=== PATIENT | male | born 1955 | race Caucasian/White ===

== ENCOUNTER 2024-02-16 09:32 | Inpatient (IN) ==
--- NOTE | 2024-02-16 09:41 | Emergency Department Note ---
Impression & Plan ST elevation (STEMI) myocardial infarction ADMIT ED Provider Note HPI: History obtained from patient and via EMS report. The patient is a 68-year-old gentleman who presents to the emergency department as a heart alert. Patient was walking shortly prior to arrival to the ED when he became acutely short of breath and had some chest discomfort. EMS was contacted and EKG performed in the field showed evidence of ST elevation in leads V2 and V3 concerning for STEMI. EMS called and for med command and a heart alert was activated prior to the patient's arrival. On arrival here to the ED the patient is hemodynamically stable, he is alert, we were able to discuss a plan of care with the patient via the diplomatic interpreter video screen and he expressed an understanding of his condition and was in agreement for transfer to the cardiac catheterization lab. This conversation was held with interventional cardiology present. ROS: - Per HPI Differential Diagnosis: ST elevation myocardial infarction, pericarditis, costochondritis, aortic dissection, esophageal spasm, amongst other potential pathologies. *Outpatient medications and allergy history reviewed. 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 Interventional cardiology was at the bedside at the time the patient arrived. Lab work was sent and the patient was transported to the cardiac catheterization lab in stable condition for further management/definitive care. Chest x-ray was deferred to the cardiac catheterization lab per interventional cardiology preference. Patient was noted to be given aspirin in the field via EMS prior to arrival. Patient was explained all the above findings via the video diplomatic interpreter service, he was in agreement for transfer to the cardiac catheterization lab. I did attempt to contact the patient's family to update them at the number he provided and there was no answer. Signout was given to the admitting [facility] Hospitalist service. Patient was admitted to the service of Dr. Hills. Consultants/Discussions held with other healthcare providers: -Interventional cardiology, Dr. Kaminski -Hospitalist, Dr. Hills Disposition discussion held by myself with: -Patient * CRITICAL CARE TIME: ( 35 ) minutes - Diagnosis: 1. ST elevation [place], acute Disposition: Admission Johnathon Llamas DO Emergency Medicine Past Med/Surg History Problem List (Updated 02/16/24 @ 11:37 by Johnathon Llamas DO) ST elevation (STEMI) myocardial infarction (Acute) Social History Smoking Status: Unknown if ever smoked Hx Alcohol Use: No Hx Substance Use: No Preferred Language: Chadian Communication Ability: Effective Communication Tools: IPad Water Treatment Technician Required: Yes Beliefs That Will Affect Care: None Current Living Situation: Spouse Other Information That Helps Us Care for You: No Feels Safe at Home: Yes Safety Concerns: Feels Safe At This Time Assistive Devices: None Allergies Allergies Allergy/AdvReac Type Severity Reaction Status Date / Time No Known Allergies Allergy Unverified 01/10/11 16:14 Home Meds Home Medications Medication Instructions Recorded Confirmed None (Patient States No Home Meds) ##0 01/10/11 Results & Data (ED) Vital Signs Vital Signs - 24 hr 02/16/24 09:35 02/16/24 09:35 02/16/24 09:41 Pulse Rate 88 Pulse Rate [Apical] 92 H Respiratory Rate 17 18 Respiratory Depth Normal Blood Pressure 142/98 H Blood Pressure [Left Arm] 148/99 H Blood Pressure Mean 112 Blood Pressure Mean [Left Arm] 115 Blood Pressure Position [Left Arm] Semi-fowlers Pulse Oximetry 92 Oxygen Delivery Method Nasal Cannula Nasal Cannula Oxygen Flow Rate 4 4 Sepsis Recent Fever Within 48 Hours No Sepsis New/Unexplained Change in Mental Status N/A Sepsis Action Taken by Nursing No Action Required Laboratory Data 02/16/24 09:41 02/16/24 09:41 Lab Results 02/16/24 Range/Units 09:41 WBC 8.98 (4.8-10.8) K/ul RBC 4.55 L (4.70-6.10) M/uL Hgb 14.9 (14.0-18.0) g/dl Hct 44.1 (42.0-52.0) % MCV 96.9 (80.0-100.0) fL MCH 32.7 (25.0-34.0) pg MCHC 33.8 (32.0-36.0) g/dL RDW Std Deviation 50.5 H (36.4-46.3) fL RDW Coeff of Kristel 14.2 (11.5-14.5) % Plt Count 272 (130-400) K/uL MPV 9.3 L (9.4-12.4) fL Immature Gran % (Auto) 0.2 % Neut % (Auto) 48.6 % Lymph % (Auto) 32.0 % Dauphin % (Auto) 13.4 % Eos % (Auto) 4.9 % Baso % (Auto) 0.9 % Neut # (Auto) 4.37 (1.40-6.50) K/uL Lymph # (Auto) 2.87 (1.20-3.40) K/uL [place]hin # (Auto) 1.20 H (0.11-0.59) K/uL Eos # (Auto) 0.44 (0.00-0.50) K/uL Baso # (Auto) 0.08 (0.00-0.20) K/uL Immature Gran # (Auto) 0.02 (0.01-0.20) K/uL Sodium 140 (136-145) mmol/L Potassium 3.9 (3.5-5.1) mmol/L Chloride 108 H (98-107) mmol/L Carbon Dioxide 25 (21-32) mmol/L Anion Gap 7 (3-11) BUN 13 (6-23) mg/dl Creatinine 1.03 (0.6-1.4) mg/dl Est Cr Clr Drug Dosing Not Reportable eGFR 80.11 BUN/Creatinine Ratio 12.6 (10-20) Glucose 138 H (70-99(Fasting)) mg/dl Calcium 8.7 (8.6-10.3) mg/dl Total Bilirubin 0.9 (0.2-1.0) mg/dl AST 20 (13-39) U/L ALT 14 (7-52) U/L Alkaline Phosphatase 63 (34-104) U/L Troponin I High Sens 57.2 H* (0-20) pg/ml Total Protein 7.1 (6.0-8.3) gm/dl Albumin 4.1 (3.4-5.0) gm/dl Globulin 3.0 (2.5-4.0) gm/dl Albumin/Globulin Ratio 1.4 (0.9-2) Lipase 15 (11-82) U/L Administered Medications Discontinued Medications Aspirin (Aspirin Chew 324 Mg) 324 mg PO NOW STA Stop: 02/16/24 09:37 Last Admin: 02/16/24 09:56 Dose: 324 mg Documented By: CMB Aspirin (Aspirin Chew 324 Mg) Confirm Administered Dose 324 mg .ROUTE .STK-MED ONE Stop: 02/16/24 09:39 Last Admin: 02/16/24 09:56 Dose: Not Given Documented By: CMB Fentanyl Citrate (Fentanyl Citrate Pf 100 Mcg/2 Ml Vial) Confirm Administered Dose 100 mcg .ROUTE .STK-MED ONE Stop: 02/16/24 09:38 Last Admin: 02/16/24 10:21 Dose: 25 mcg Documented By: KATIE Heparin Sodium (Porcine) (Heparin (Porcine) 1000 Unit/Ml 10 Ml (Fingernail Sculptor Use Only)) Confirm Administered Dose 10,000 units .ROUTE .STK-MED ONE Stop: 02/16/24 09:38 Last Admin: 02/16/24 10:21 Dose: Not Given Documented By: CMMarlon Heparin Sodium (Porcine) (Heparin Sod (Porcine) 1000 Unit/Ml) Confirm Administered Dose 1,000 units .ROUTE .STK-MED ONE Stop: 02/16/24 09:39 Last Admin: 02/16/24 09:56 Dose: 5,000 units Documented By: CMMarlon Co-signed By: [facility] Heparin Sodium (Porcine) (Heparin (Porcine) 1000 Unit/Ml 10 Ml (Fingernail Sculptor Use Only)) Confirm Administered Dose 10,000 units .ROUTE .STK-MED ONE Stop: 02/16/24 10:29 Last Admin: 02/16/24 10:32 Dose: 1,000 units Documented By: KATIE Heparin Sodium/Sodium Chloride (Heparin In Nss Infusion 1000 Unit/500 Ml (2 U/Ml) Bag) Confirm Administered Dose 3,000 units IV .STK-MED ONE Stop: 02/16/24 09:38 Last Admin: 02/16/24 09:57 Dose: 3,000 units Documented By: GENIA Iodixanol (Iodixanol (Visipaque) 320 Mg/Ml 100ml) Confirm Administered Dose 1 ml IV .STK-MED ONE Stop: 02/16/24 09:38 Last Admin: 02/16/24 09:56 Dose: Not Given Documented By: KATIE Ioversol (Optiray 350) Confirm Administered Dose 1 ml .ROUTE .STK-MED ONE Stop: 02/16/24 09:38 Last Admin: 02/16/24 10:24 Dose: 145 ml Documented By: GENIA Midazolam HCl (Midazolam Hcl 1 Mg/Ml 2ml Vial) Confirm Administered Dose 2 mg .ROUTE .STK-MED ONE Stop: 02/16/24 09:37 Last Admin: 02/16/24 10:20 Dose: 1 mg Documented By: KATIE Nitroglycerin/Dextrose (Nitroglycerin/D5w 100mcg/Ml 20ml Syr) Confirm Administered Dose 2,000 mcg .ROUTE .STK-MED ONE Stop: 02/16/24 09:38 Last Admin: 02/16/24 09:57 Dose: 2,000 mcg Documented By: GENIA Ticagrelor (Ticagrelor 90 Mg Tab) Confirm Administered Dose 180 mg .ROUTE .STK- MED ONE Stop: 02/16/24 09:39 Last Admin: 02/16/24 09:56 Dose: 180 mg Documented By: KATIE Discharge Plan Visit Data Chief Complaint: Heart Alert Stated Complaint: HEART ALERT ED Provider: Johnathon Llamas Discharge Problem: ST elevation (STEMI) myocardial infarction Discharge Instructions Interventions: ED Discharge Assessment Last Done: 02/16/24 10:13
[2024-02-16] MEDS: IODIXANOL (VISIPAQUE) 320 MG/ML 100ML IV ONE (09:56)
[2024-02-16] MEDS: TICAGRELOR 90 MG TAB ONE (09:56)
[2024-02-16] MEDS: ASPIRIN CHEW 324 MG ONE (09:56)
[2024-02-16] MEDS: HEPARIN SOD (PORCINE) 1000 UNIT/ML ONE (09:56)
[2024-02-16] MEDS: ASPIRIN CHEW 324 MG PO STA (09:56)
[2024-02-16] MEDS: NITROGLYCERIN/D5W 100MCG/ML 20ML SYR ONE (09:57)
[2024-02-16 10:04] LABS: Basophils # (auto) 0.08 K/uL (0.00-0.20); Basophils % (auto) 0.9 %; Eosinophils # (auto) 0.44 K/uL (0.00-0.50); Eosinophils % (auto) 4.9 %; Hematocrit (blood only) 44.1 % (42.0-52.0); Hemoglobin 14.9 g/dl (14.0-18.0); Immature Granulocytes # (auto) 0.02 K/uL (0.01-0.20); Immature Granulocytes % (auto) 0.2 %; Lymphocytes # (auto) 2.87 K/uL (1.20-3.40); Mean Corpuscular Hemoglobin 32.7 pg (25.0-34.0); Mean Corpuscular Hgb Conc 33.8 g/dL (32.0-36.0); Mean Corpuscular Volume 96.9 fL (80.0-100.0); Mean Platelet Volume 9.3 fL (9.4-12.4); Monocytes % (auto) 13.4 %; Neutrophils # (auto) 4.37 K/uL (1.40-6.50); Neutrophils % (auto) 48.6 %; Platelet Count 272 K/uL (130-400); RDW Coefficient of Variation 14.2 % (11.5-14.5); RDW Standard Deviation 50.5 fL (36.4-46.3); Red Blood Count 4.55 M/uL (4.70-6.10); White Blood Count 8.98 K/ul (4.8-10.8)
[2024-02-16 10:12] LABS: Alanine Aminotransferase 14 U/L (7-52); Albumin Globulin Ratio 1.4 (0.9-2); Albumin Level 4.1 gm/dl (3.4-5.0); Alkaline Phosphatase 63 U/L (34-104); Anion Gap 7 (3-11); Aspartate Aminotransferase 20 U/L (13-39); BUN Creatinine Ratio 12.6 (10-20); Bilirubin,Total 0.9 mg/dl (0.2-1.0); Blood Urea Nitrogen 13 mg/dl (6-23); Calcium 8.7 mg/dl (8.6-10.3); Carbon Dioxide 25 mmol/L (21-32); Chloride 108 mmol/L (98-107); Glucose 138 mg/dl (70-99(Fasting)); Lipase 15 U/L (11-82); Potassium 3.9 mmol/L (3.5-5.1); Sodium 140 mmol/L (136-145); Total Protein 7.1 gm/dl (6.0-8.3)
[2024-02-16] MEDS: MIDAZOLAM HCL 1 MG/ML 2ML VIAL ONE (10:20)
[2024-02-16] MEDS: HEPARIN (PORCINE) 1000 UNIT/ML 10 ML (CATH LAB USE ONLY) ONE ×2 (10:21→10:32)
[2024-02-16] MEDS: fentaNYL citrate PF 100 MCG/2 ML VIAL ONE (10:21)
[2024-02-16 10:23] LABS: Troponin I High Sensitivity 57.2 pg/ml (0-20)
[2024-02-16] MEDS: OPTIRAY 350 ONE (10:24)
[2024-02-16] MEDS ORDERED: ATROPINE SULFATE 0.1 MG/ML 10ML SYR IV PRN (11:04)
[2024-02-16] MEDS ORDERED: ONDANSETRON INJ 2 MG/ML 2 ML VIAL IV PRN (11:04)
--- NOTE | 2024-02-16 11:04 | Pre Anesthesia Assessment ---
Date of Service February 16, 2024 Pre Sedation Assessment Vital Signs Pulse Pulse Resp BP BP Pulse Ox O2 Del Method 02/16/24 09:41 92 H 18 148/99 H 02/16/24 09:35 Nasal Cannula 02/16/24 09:35 88 17 142/98 H 92 Nasal Cannula O2 Flow Rate 02/16/24 09:41 02/16/24 09:35 4 02/16/24 09:35 4 Cardiovascular RRR, no murmur, no edema Respiratory normal respiratory effort, lungs clear to auscultation Pre-Sedation Airway Assessment Smoking Status: Unknown if ever smoked mallampati 3 ASA 4 Notes The planned sedation has been discussed with the patient. Informed Consent was obtained. I have identified the patient, determined the appropriateness of sedation and have assessed the patient immediately prior to the procedure. All medicine(s) and interventions are by my order.
--- NOTE | 2024-02-16 11:49 | History & Physical Report ---
Date of Service February 16, 2024 Assessment & Plan (1) ST elevation (STEMI) myocardial infarction: Plan This is a 68 yo M with a PMH of BPH, psoriasis who presented to ED this morning as a heart alert. Patient reports going for a walk this morning and becoming acutely SOB with chest discomfort. Called EMS and EKG in the field demonstrated ST elevation in V2 and V3 concerning for STEMI. Patient primary language is Marshallese and cryptologic technician operator/analyst was used in ED to explain condition and need for cardiac catheterization. STEMI s/p DOMI x 3 to LAD Seen post-procedure, resting comfortable in 101-[address] 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 Pina Continue Flomax, finasteride Code status: FULL PCP: Zora Dispo: admitted to ICU Patient seen in collaboration with Dr. Hills. Please see addendum. I spent a total of 75 minutes coordinating, documenting, and providing care for this patient excluding time spent in the performance of separately billed services. Admission and Anticipated Discharge Date Admission Date: February 16, 2024 History of Present Illness Chief Complaint: heart alert Primary Care Provider: NO PCP This is a 68 yo M with a PMH of BPH, psoriasis who presented to ED this morning as a heart alert. Patient reports going for a walk this morning and becoming acutely SOB with chest discomfort. Symptoms did not resolve with rest. + associated nausea, no vomiting. Patient called EMS and EKG in the field demonstrated ST elevation in V2 and V3 concerning for STEMI. Patient primary language is Marshallese and cryptologic technician operator/analyst was used in ED to explain condition and need for cardiac catheterization. Patient is seen in 101-1 post cardiac catheterization by Dr. Kaminski. S/p DOMI x 3 to LAD per RN report (awaiting cath report). Family at bedside. Feeling much better now. No more SOB, has some mild chest wall discomfort. No F/C, lightheadedness, palpitations, N/V, abd pain, dysuria, diarrhea or constipation. No history of known cardiac disease. No family history of heart disease. Non- smoker. Does not drink alcohol. Denies known hx of DM or HLD. Allergies Allergy/AdvReac Type Severity Reaction Status Date / Time No Known Allergies Allergy Unverified 01/10/11 16:14 Home Medications Medication Instructions Recorded Confirmed Type finasteride 5 mg tablet 5 mg PO DAILY 02/16/24 02/16/24 History tamsulosin 0.4 mg capsule 0.4 mg PO DAILY 02/16/24 02/16/24 History Past Med/Surg History Problem List (Updated 02/16/24 @ 12:24 by Arianne Mendez PA-C) ST elevation (STEMI) myocardial infarction (Acute) Medical History (Updated 02/16/24 @ 12:24 by Arianne Mendez PA-C) BPH (benign prostatic hyperplasia) Surgical History (Updated 02/16/24 @ 12:24 by Arianne Mendez PA-C) History of appendectomy Family History (Updated 02/16/24 @ 12:24 by Arianne Mendez PA-C) Other Diabetes Social History Smoking Status: Unknown if ever smoked Hx Alcohol Use: No Hx Substance Use: No Preferred Language: Marshallese Communication Ability: Effective Communication Tools: IPad Print Shop Manager Required: Yes Beliefs That Will Affect Care: None Current Living Situation: Spouse Other Information That Helps Us Care for You: No Feels Safe at Home: Yes Safety Concerns: Feels Safe At This Time Assistive Devices: None Review of Systems Review of Systems: At least ten systems reviewed and negative except as noted in the HPI. Physical Exam Physical Exam: General Appearance: WD/WN, vitals as above, NAD, sitting up in bed, pleasant, conversing easily Head: normocephalic, atraumatic Eyes: normal inspection, PERRL, conjunctivae normal, anicteric sclerae ENT: external ear and nose normal, oropharynx normal Neck: normal visual inspection, trachea midline, no thyromegaly Respiratory: normal respiratory effort, lungs clear to auscultation, no wheeze, rales, rhonchi. No accessory muscle use Cardiovascular: regular rate, rhythm, no murmur, normal peripheral pulses, no BLE edema. Vessels: no JVD, R radial guard in place, no bleeding Chest: normal inspection of chest Abdomen/GI: normal bowel sounds, soft, nontender, no hepatosplenomegaly Extremities/Musculoskeletal: no cyanosis or clubbing, extremities motor strength 5/5 Neurologic: PERRL, EOMI, accommodation nl, no face palsy, no dysarthria, CN's II-XI intact bilaterally and moves all extremities Psychiatric: A+Ox3, euthymic affect Skin: no rashes, normal color, warm/dry Results & Data Results & Data Vital Signs (Past 12 Hours) Vital Signs Temp Pulse Pulse Resp BP BP Pulse Ox 02/16/24 11:15 79 143/97 H 91 02/16/24 11:00 75 151/87 H 90 02/16/24 10:57 36.8 C 86 16 129/71 93 02/16/24 09:41 92 H 18 148/99 H 02/16/24 09:35 02/16/24 09:35 88 17 142/98 H 92 O2 Del Method O2 Flow Rate 02/16/24 11:15 02/16/24 11:00 02/16/24 10:57 Room Air 02/16/24 09:41 02/16/24 09:35 Nasal Cannula 4 02/16/24 09:35 Nasal Cannula 4 Laboratory Results Short CBC 02/16/24 02/16/24 Range/Units 09:41 11:35 WBC 8.98 15.01 H (4.8-10.8) K/ul Hgb 14.9 14.5 (14.0-18.0) g/dl Hct 44.1 42.2 (42.0-52.0) % Plt Count 272 300 (130-400) K/uL BMP 02/16/24 09:41 Sodium 140 Potassium 3.9 Chloride 108 H Carbon Dioxide 25 BUN 13 Creatinine 1.03 Glucose 138 H Calcium 8.7 Liver Function 02/16/24 Range/Units 09:41 Total Bilirubin 0.9 (0.2-1.0) mg/dl AST 20 (13-39) U/L ALT 14 (7-52) U/L Alkaline Phosphatase 63 (34-104) U/L Albumin 4.1 (3.4-5.0) gm/dl ECG Additional Comments: ST changes: ST elevation in leads V2 and V3 Supervising Physician Co-Signing Physician Notes Attending Addendum: Case reviewed with the advanced practitioner. I have personally performed a history and physical examination on the patient. I have reviewed the advanced practitioner's documentation on the date of service referenced in note, and I agree with, and take responsibility for the plan of care. please refer to her notes for full details patient seen and examined, records reviewed by myself as well on exam, patient seen resting in bed, comfortable, in good spirits has very mild chest discomfort but otherwise feels ok no shortness of breath, palpitations, dizziness, nausea no other symptoms VS noted and reviewed oriented x 3, not in distress, speaks in sentences with no effort nor accessory muscle use normal rate, regular rhythm, no murmurs clear breath sounds bilaterally non distended, soft, nontender no bipedal edema, erythema, warmth no neuro deficits all labs, imaging noted and reviewed ASSESSMENT AND PLAN> STEMI non smoker, no family history as per patient BP elevated at home for the past 2 days as per son check a1c, lipid panel s/p cardiac cath: (+) [address], official report pending Metoprolol, ASA, Brilinta, Lipitor started repeat echo pending other diagnoses and plan of care as per advanced practitioner's notes Jose Cruz Hills MD
[2024-02-16 11:55] LABS: Basophils # (auto) 0.06 K/uL (0.00-0.20); Basophils % (auto) 0.4 %; Eosinophils # (auto) 0.06 K/uL (0.00-0.50); Eosinophils % (auto) 0.4 %; Hematocrit (blood only) 42.2 % (42.0-52.0); Hemoglobin 14.5 g/dl (14.0-18.0); Immature Granulocytes # (auto) 0.07 K/uL (0.01-0.20); Immature Granulocytes % (auto) 0.5 %; Lymphocytes % (auto) 7.3 %; Mean Corpuscular Hemoglobin 32.9 pg (25.0-34.0); Mean Corpuscular Hgb Conc 34.4 g/dL (32.0-36.0); Mean Corpuscular Volume 95.7 fL (80.0-100.0); Mean Platelet Volume 9.5 fL (9.4-12.4); Monocytes # (auto) 0.77 K/uL (0.11-0.59); Monocytes % (auto) 5.1 %; Neutrophils # (auto) 12.95 K/uL (1.40-6.50); Neutrophils % (auto) 86.3 %; Platelet Count 300 K/uL (130-400); RDW Coefficient of Variation 13.9 % (11.5-14.5); RDW Standard Deviation 49.5 fL (36.4-46.3); Red Blood Count 4.41 M/uL (4.70-6.10); White Blood Count 15.01 K/ul (4.8-10.8)
--- NOTE | 2024-02-16 11:59 | Electrocardiogram Report ---
Test Reason : Blood Pressure : */* mmHG Vent. Rate : 91 BPM Atrial Rate : 91 BPM P-R Int : 176 ms QRS Dur : 88 ms QT Int : 378 ms P-R-T Axes : 62 -2 47 degrees QTcB Int : 464 ms Normal sinus rhythm ST elevation concerning for anterior injury Confirmed by Camilo Murguia ([id number]) on 02/16/2024 11:58:42 AM Referred By: Confirmed By: Camilo Murguia
[2024-02-16 12:02] LABS: Estimated Average Glucose 117 mg/dl; Hemoglobin A1C 5.7 % (4.5-5.6)
--- OUTSIDE RECORDS SUMMARY | 2024-02-16 13:35 | External Medical Summary | Summary of Care ---
Author Name Unknown Organization [facility] Address [address] [place] [address] Phone [phone] Care Team Providers Care Orange Peel Operator Name Role Phone Evgeny Blakely MD Primary Care Provider + Reason for Visit * Auth/Cert Specialty Diagnoses / Procedures Referred By Contac t Referred To Contact Diagnoses Special screening for malignant neoplasms, colon Special screening for malignant neoplasms, colon [Z12.11] Procedures COLONOSCOPY, DIAGNOSTIC (RECTUM) COLONOSCOPY FLEXIBLE PROXIMAL DIAGNOSTIC Jorge Mendoza MD [address] [place] [address] [facility] [address] [place] [phone] Referral ID Status Reason Start Date Expiration Date Visits Re quested Visits Authorized [id number] Encounter Details Date Type Department Care Team (Latest Contact Info) Description 10/14/2023 12:03 PM EDT - 10/14/2023 2:38 PM EDT Hospital Encounter [facility], Endoscopy [facility] [address] [place] [id number] Jorge Mendoza MD [address] [place] [address] Colonoscopy Discharge Disposition: Home - Self Care Allergies No known active allergiesdocumented as of this encounter (statuses as of 10/15/2023) Medications Medication Sig Dispensed Refills Start Date End Date Status NATURAL SUPPLEMENT [employer] Eczema and Psoriasis Cream - apply as directed Active documented as of this encounter (statuses as of 10/15/2023) Active Problems Problem Noted Date Diagnosed Date History of 2019 novel coronavirus disease (COVID -19) 09/03/2021 Psoriasis 12/30/2019 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 10/01 FOB ordered Atopic dermatitis and related condition 05/04/19 14 Routine general medical exam ination at a health care facility 05/04/2013 Overview: 04/06 FOB WNL Declined colonoscopy (cost) 10/01 stress echo WNL documented as of this encounter (statuses as of 10/15/2023) Resolved Problems Problem Noted Date Diagnosed Date Resolved Date Elevated BP 05/04/2013 10/05/2014 documented as of this encounter (statuses as of 10/15/2023) Immunizations Name Administration Dates Next Due COVID-19 mRNA, LNP-s, No Pre serve, 2-Dose Series (Intellio) 11/27/2020,11/06/2020 COVID-19, LNP-s, No Preserve , Avinash-sucrose, Ages 12+ (Pfizer) 06/03/2021 Pneumococcal Conjugate Vaccine, 20-valent (Prevn ar20) 02/10/2023 Season Influenza, Cell Cultu re, 18+ Yrs, With Preserv (Flucelvax) 05/04/2013 Seasonal Influenza, PF, 6 M & above, IM , (FluLaval or Fluzone) 12/30/2019,03/15/2019 Seasonal Influenza, Quadrivalent Hd (Fluzone Hd) 02/10/2023 Seasonal Influenza, Quadrivalent, No Preserve, I M 03/09/2015 TDAP (age 10 and older)(Boostrix) 09/20/2023, Zoster Vaccine Recombinant (Shingrix) 12/30/2019 ,04/26/2019 documented as of this encounter Social History Tobacco Use Types Packs/Day Years Used Date Smoking Tobacco: Former Smokeless Tobacco: Never Comments:only smoked a coupl e years, quitted more than 15 years ago Alcohol Use Standard Drinks/Week Comments No 0 (1 standard drink = 0.6 oz pur e alcohol) PHQ-2 Answer Date Recorded PHQ Adult Total Score 0 09/20/2023 Hunger Vital Sign Answer Date Recorded Within the past 12 months, y ou worried that your food would run out before you got the money to buy more. Never true 09/20/19 24 Within the past 12 months, t he food you bought just didn't last and you didn't have money to get more. Never true 09/20/2023 Childcare Answer Date Recorded Do you feel overwhelmed with taking care of a child, family member or friend? No 09/20/2023 Does your family need help f inding childcare? (Household - for ages 0-17 years) Not on file 09/20/2023 Clothing Answer Date Recorded Have you been unable to get clothing when it was really needed? No 09/20/2023 Is your family able to get c lothes or diapers when needed? (Household - for ages 0-17 years) Not on file 09/20/2023 Personal Safety Answer Date Recorded Do you feel unsafe or have concerns for your saf ety? No 09/20/2023 Do you have concerns for you r family's safety? (Household - for ages 0-17 years) Not on file 09/20/2023 Utilities Answer Date Recorded Do you have trouble paying y our heating, water, or electric bill? No 09/20/2023 Is your family able to pay t he heat, water, or electric bill? (Household - for ages 0-17 years) Not on file 09/20/2023 Does your family have access to good internet? (Household - for ages 0-17 years) Not on file 09/20/2023 Employment Status Answer Date Recorded Are you unemployed or without regular income? No 09/20/2023 Does the household have a re gular source of income? (Household - for ages 0-17 years) Not on file 09/20/2023 Social Connections Answer Date Recorded How often do you feel lonely or isolated from th ose around you? Never 09/20/2023 Financial Resource Strain Answer Date R ecorded Do you have any trouble payi ng for your medications, or do you think you might in the future? No 09/20/2023 Does your family have troubl e paying for medicine? (Household - for ages 0-17 years) Not on file 09/20/2023 Transportation Needs Answer Date Record ed READ ONLY Do you have troubl e getting a ride to medical visits or work? Never True 09/20/2023 Does your family have a hard time getting a ride to doctors visits? (Household - for ages 0-17 years) Not on file 09/20/2023 Has lack of transportation k ept you from medical appointments, meetings, work, or from getting things needed for daily living? Check all that apply. (Adult - for ages 18 years and over) Not on file 09/20/2023 Do you (or your family) have trouble finding or paying for a ride (transportation)? (Household - for ages 0-17 years) Not on file 09/20/2023 Housing Stability Answer Date Recorded Do you currently live in a s helter or have no steady place to sleep at night? No 09/20/2023 READ ONLY Do you think you a re at risk of becoming homeless? No 09/20/2023 Does your family worry about paying for your home or becoming homeless? (Household - for ages 0-17 years) Not on file 0 09/20/2023 Are you homeless or worried that you might be in the future? (Adult - for ages 18 years and over) Not on file Are you (or your family) eric eless or worried that you might be in the future? (Household - for ages 0-17 years) Not on file Food Insecurity Answer Date Recorded Do you need food for this week? No 09/20/2023 Are you able to get enough f ood for your family? (Household - for ages 0-17 years) Not on file 09/20/2023 Does your family need food t his week? (Household - for ages 0-17 years) Not on file 09/20/2023 Do you always have enough fo od for your family? (Household - for ages 0-17 years) Not on file 09/20/2023 Sex and Gender Information Value Date Recorded Sex Assigned at Male 09/20/2023 8:27 AM EDT Gender Identity Male 09/20/2023 8:27 AM EDT Sexual Orientation Straight 09/20/2023 8: 27 AM EDT Job Start Date Occupation Industry Not on file Not on file Not on file documented as of this encounter Last Filed Vital Signs Vital Sign Reading Time Taken Comments Blood Pressure 122/72 10/14/2023 1:58 PM EDT Pulse 54 10/14/2023 1:58 PM EDT Temperature 36.3 C (97.4 F) 10/14/2023 1:58 PM ED T Respiratory Rate 17 10/14/2023 1:58 PM EDT Oxygen Saturation 99% 10/14/2023 1:58 PM EDT Inhaled Oxygen Concentration - - Weight 93.9 kg (207 lb) 10/14/2023 12:28 PM EDT Height 177.8 cm (5' 10") 10/14/2023 12:28 PM EDT Body Mass Index 29.7 10/14/2023 12:28 PM EDT documented in this encounter H&P Notes * Jorge Mendoza MD - 10/14/2023 1:09 PM EDT Endoscopy Pre-Procedure Assessment Name: [place] Date: 10/14/2023 Time: 1:09 PM Procedure: Colonoscopy; with Indication(s) of average risk screening Endoscopy Pre-Procedure Assessment: Prior to the procedure, the patient was identified. The patient's history, medications and allergies were reviewed as per the Anesthesia Assessment. The patient is competent. The risks and benefits of the proposed procedure and the planned sedation were discussed with the patient. All questions were answered and informed consent for the procedure was obtained. This patient has undergone a preprocedural evaluation. A determination has been made to proceed with the planned procedure under [facility] procedural guidelines and the CMS Non-Emergent, Elective Medical Services and Treatment Recommendations (published on 07-25-19). The community and hospital prevalence of COVID-19 has been discussed as well as this patient's specific risks associated with SARS-CoV-19 infection. Based upon the clinical acuity and patient-specific care considerations, this procedure is deemed a Tier II - Intermediate acuity treatment or service with either progression or the threat of progressive disease related to the delay in treatment. Not providing the service has the potential for increasing morbidity or mortality. BP 141/71 | Pulse 67 | Temp 36.3 C (97.4 F) (Tympanic) | Resp 18 | Ht 1.778 m (5' 10") | Wt 93.9 kg (207 lb) | SpO2 98% | BMI 29.70 kg/m | BSA 2.15 m Prior to Admission medications Medication Sig Last Dose Discont. Tamsulosin HCl 0.4 MG Oral Capsule (Flomax) Take 1 Capsule by mouth in the morning. Patient not taking: Reported on 10/05/2023 Not Taking Finasteride 5 MG Oral Tablet (Proscar) Take 1 Tablet by mouth in the morning. Patient not taking: Reported on 10/05/2023 Not Taking NATURAL SUPPLEMENT [employer] Eczema and Psoriasis Cream - apply as directed Patient not taking: Reported on 10/05/2023 Not Taking Review of patient's allergies indicates: No Known Allergies Physical Exam: Mental Status Examination: alert and oriented. General: nad, calm Airway Examination: normal oropharyngeal airway and neck mobility. CV: no JVD Respiratory Examination: symmetrical excursion Abd:soft/ntd ASA Grade: III - A patient with severe systemic disease. After reviewing the risks and benefits, the patient was deemed in satisfactory condition to undergothe procedure. The anesthesia plan was to use general anesthesia. Jorge Mendoza MD 10/14/2023 documented in this encounter Procedure Notes * Evgeny Blakely MD - 10/14/2023 12:30 PM EDTAssociated Order(s): COLONOSCOPY [facility] Patient Name: [place] Procedure Date: 10/14/2023 12:30 PM Date of : 1955 Admit Type: Outpatient Note Status: Finalized Date of : 1955 Admit Type: Outpatient Age: 68 Room: [facility] [address] 2 Gender: Male Note Status: Finalized Procedure: Colonoscopy Indications: Screening for colorectal malignant neoplasm Providers: Jorge Mendoza MD (Doctor) Referring MD: Evgeny Blakely MD (Referring MD) Medicines: Propofol per Anesthesia Complications: No immediate complications. Estimated blood loss: None. Procedure: Pre-Anesthesia Assessment: - - Prior to the procedure, a History and Physical was performed, patient medications, allergies and sensitivities were reviewed. The patient's tolerance of previous anesthesia was reviewed. See [facility] for further details. - The risks, benefits, and alternatives of the procedure including the sedation options and risks were discussed with the patient. All questions were answered and informed consent was obtained. - Patient identification and proposed procedure were verified prior to the procedure by the physician and the nurse. The procedure was verified in the procedure room. - See [facility] for documentation of the pre-procedure assessment including ASA status. - After I obtained informed consent, the scope was carefully and meticulously passed under direct vision only when the lumen was definitively identified. CO2 insufflation was utilized throughout the entire procedure exclusively. After I obtained informed consent, the scope was passed under direct vision. All instruments were visually inspected immediately before and after removal from the patient to ensure they are fully intact. Throughout the procedure, the patient's blood pressure, pulse, and oxygen saturations were monitored continuously. The colonoscopy was performed without difficulty. The patient tolerated the procedure well. The quality of the bowel preparation was fair. The [id number] Colonoscope ([id number]) was introduced through the anus and advanced to the cecum, identified by appendiceal orifice and ileocecal valve. Findings & Specimens: The terminal ileum appeared normal. Three sessile polyps were found in the ascending colon. The polyps were 3 to 5 mm in size. These polyps were removed with a cold snare. Resection and retrieval were complete. The pathology specimen was placed into Bottle Number 1. Three pedunculated polyps were found in the sigmoid colon. The polyps were 7 to 10 mm in size. These polyps were removed with a hot snare. Resection and retrieval were complete. The pathology specimenwas placed into Bottle Number 2. To prevent bleeding post-intervention, four hemostatic clips were successfully placed (MR conditional). There was no bleeding during, or at the end, of the procedure. A 4 mm polyp was found in the sigmoid colon. The polyp was sessile. The polyp was removed with a cold snare. Resection and retrieval were complete. The pathology specimen was placed into Bottle Number 2. Impression: - Preparation of the colon was fair. - The examined portion of the ileum was normal. - Three 3 to 5 mm polyps in the ascending colon, removed with a cold snare. Resected and retrieved. - Three 7 to 10 mm polyps in the sigmoid colon, removed with a hot snare. Resected and retrieved. Clips (MR conditional) were placed. - One 4 mm polyp in the sigmoid colon, removed with a cold snare. Resected and retrieved. Recommendation: - Repeat colonoscopy in 1 year for surveillance based on pathology results. - Return to referring physician as previously scheduled. - Patient has a contact number available for emergencies. The signs and symptoms of potential delayed complications were discussed with the patient. Return to normal activities tomorrow. Written discharge instructions were provided to the patient. - Patient has a contact number available for emergencies. The signs and symptoms of potential delayed complications were discussed with the patient. Return to normal activities tomorrow. Written discharge instructions were provided to the patient. Jorge Mendoza MD 10/14/2023 1:43:38 PM This report has been signed electronically. documented in this encounter Nursing Notes * Jessika Cole RN - 10/14/2023 2:18 PM EDT Patient is alert, pain free, and tolerating po fluids prior to discharge. Patient has been visited by Dr. Mendoza. Patient has received and demonstrates understanding of discharge instructions. Patient ambulated to private auto accompanied by endo staff. * Gabriel Newton RN - 10/14/2023 1:47 PM EDT See anesthesia record for medication administered during procedure. Gabriel Newton RN Specimen(s) and location(s) verified with physician post procedure 1:47 PM Gabriel Newton RN Pt michaela colonoscopy w/ polypectomies and clip placement well. Abd pressure applied to assist w/ advancement of the scope. Abd soft post proc. To recovery lying on L side. Pre cleaning of scope at the bedside started by sound technician supervisor. * Jessika Cole RN - 10/14/2023 1:43 PM EDT Patient transferred to post endo s/p colonoscopy. Patient awake and oriented. Respirations are even and unlabored on room air. NSR in the 50s on the monitor. Abdomen soft and non distended. Vital signs stable. * Ayah Millard RN - 10/14/2023 12:30 PM EDT Patient prepped amd ready for procedure. Call coronado in reach. * Ayah Millard RN - 10/14/2023 12:17 PM EDT The following pt discharge instructions reviewed with pt prior to prodedure: No driving today. No alcohol today. No signing of legal documents. Rest as much as possible today and can return to normal activities tomorrow. No operating any heavy equipment today. Diet as tolerated. Pt verbalized understanding. Patient speaks Barbadian as well as Malian. The [employer] interpretive service was made available to the patient . Patient declined need for an senior visual designer at this time. Patient was informed that an senior visual designer is available if at any time he feels it to be necessary. documented in this encounter Plan of Treatment Upcoming Encounters Date Type Department Care Team (Late st Contact Info) Description 02/09/2024 8:30 AM EDT Office Visit Urology, [facility] [address] [facility] [place] [address] Daryl Pina MD [address] [place] [id number] 02/21/2024 9:20 AM EST Office Visit Family Practice [facility] [address] [facility] [place] [address] Rangel Contreras CRNP [address] [place] [address] 06/12/2024 8:00 AM EST [facility] [address] [facility] [place] [address] Alban Bledsoe MD [address] [facility] [place] [place] [address] 09/28/2024 8:20 AM EDT Office Visit Family Practice [facility] [address] [place] [address] Evgeny Blakely MD [address] [place] [address] Pending Results Name Type Priority Associated Diagnoses Date /Time SURGICAL PATHOLOGY Pathology Routine Special screening for malignant neoplasms, colon 10/14/2023 1:44 PM EDT Scheduled Orders Name Type Priority Associated Diagnoses Orde r Schedule SURGICAL PATHOLOGY Pathology Routine Special screening for malignant neoplasms, colon Release Upon Ordering for 1 Occurrences starting 10/14/2023, 1 completed Health Maintenance Due Date Last Done Comments Hepatitis C Screening 09/13/1975 Cologuard 2002 Sigmoidoscopy 2002 Fecal Occult Blood Test 03/22/2020 03/22/2019, 10/08 COVID-19 Vaccine ( season) 2022 06/03/2021, 11/27/2020, 11/06/2020 Depression Screening 09/19/2024 09/20/2023 Diabetes Screening 02/10/2026 02/10/2023, 1 05/15/2018, 05/05/2013 Lipid Panel 02/11/2028 02/10/2023, 02/18, 05/05/2013 DTaP,Tdap,and Td Vaccines (3 - Td or Tdap) 09/19/2033 09/20/2023, 05/04/2013 Colonoscopy 10/13/2033 10/14/2023 Colorectal Cancer Screening 10/13/2033 Zoster Vaccines Completed 12/30/2019, 04/26/2019 Influenza Vaccine (FLU shot) Completed , 12/30/2019, 03/15/2019, Additional history exists Pneumococcal Vaccine: 65+ Years Completed 02/10/2023 AAA Screening Completed 09/23/2023 GARDASIL-HPV IMMUNIZATION SERIES Aged Out No longer eligible based on patient's age to complete this topic Hepatitis B Aged Out No longer eligi ble based on patient's age to complete this topic MENINGOCOCCAL (MENACTRA/MENVEO) Aged Out No longer eligible based on patient's age to complete this topic documented as of this encounter Medical Devices Implanted Type Area Dinkey Locomotive Operator Device Identifier Shelf Expiration Date Model / Serial / Lot Hemostatic Clip Res 235cm - [id number] Implanted:Qty: 4 on 10/14/2023 by Jorge Mendoza MD at ENDOSCOPY [facility] : ENDOSCOPY 02/12/2026 [id number] / / [id number] documented as of this encounter Procedures Procedure Name Priority Date/Time Associated Diagnosis Comments COLONOSCOPY 10/14/2023 12:30 PM EDT documented in this encounter Results * COLONOSCOPY (10/14/2023 12:30 PM EDT) 10/14/2023 12:3 0 PM EDT Narrative Procedure Note Evgeny Blakely MD - 10/14/2023 12:30 PM EDT [facility] Patient Name: [place] Procedure Date: 10/14/2023 12:30 PMMRN: [id number] Date of : 1955 Admit Type: Outpatient Note Status:Finalized Date of : 1955 Admit Type: Outpatient Age: 68 Room: Endo 2 Gender: Male Note Status: Finalized Procedure: Colonoscopy Indications: Screening for colorectal malignant neoplasm Providers: Jorge Mendoza MD (Doctor) Referring MD: Evgeny Blakely MD (Referring MD) Medicines: Propofol per Anesthesia Complications: No immediate complications. Estimated blood loss:None. Procedure: Pre-Anesthesia Assessment: - - Prior to the procedure, a History and Physicalwas performed, patient medications, allergies and sensitivities were reviewed. Thepatient's tolerance of previous anesthesia was reviewed. See Epic for furtherdetails. - The risks, benefits, and alternatives of theprocedure including the sedation options and risks were discussed with the patient.All questions were answered and informed consent was obtained. - Patient identification and proposed procedurewere verified prior to the procedure by the physician and the nurse. The procedure wasverified in the procedure room. - See [facility] for documentation of the pre-procedureassessment including ASA status. - After I obtained informed consent, the scope wascarefully and meticulously passed under direct vision only when the lumen wasdefinitively identified. CO2 insufflation was utilized throughout the entire procedureexclusively. After I obtained informed consent, the scope waspassed under direct vision. All instruments were visually inspected immediatelybefore and after removal from the patient to ensure they are fully intact. Throughout the procedure, the patient's bloodpressure, pulse, and oxygen saturations were monitored continuously. The colonoscopy wasperformed without difficulty. The patient tolerated the procedure well. The qualityof the bowel preparation was fair. The [id number] Colonoscope ([id number]) was introducedthrough the anus and advanced to the cecum, identified by appendiceal orifice andileocecal valve. Findings & Specimens: The terminal ileum appeared normal. Three sessile polyps were found in the ascending colon. The polypswere 3 to 5 mm in size. These polyps were removed with a cold snare. Resection and retrieval werecomplete. The pathology specimen was placed into Bottle Number 1. Three pedunculated polyps were found in the sigmoid colon. The polypswere 7 to 10 mm in size. These polyps were removed with a hot snare. Resection and retrieval werecomplete. The pathology specimen was placed into Bottle Number 2. To prevent bleeding post-intervention,four hemostatic clips were successfully placed (MR conditional). There was no bleeding during,or at the end, of the procedure. A 4 mm polyp was found in the sigmoid colon. The polyp was sessile.The polyp was removed with a cold snare. Resection and retrieval were complete. The pathology specimenwas placed into Bottle Number 2. Impression: - Preparation of the colon was fair. - The examined portion of the ileum was normal. - Three 3 to 5 mm polyps in the ascending colon,removed with a cold snare. Resected and retrieved. - Three 7 to 10 mm polyps in the sigmoid colon,removed with a hot snare. Resected and retrieved. Clips (MR conditional) wereplaced. - One 4 mm polyp in the sigmoid colon, removed witha cold snare. Resected and retrieved. Recommendation: - Repeat colonoscopy in 1 year for surveillancebased on pathology results. - Return to referring physician as previouslyscheduled. - Patient has a contact number available [facility]. The signs and symptoms of potential delayed complications were discussed withthe patient. Return to normal activities tomorrow. Written discharge instructionswere provided to the patient. - [facility] has a [facility]. The signs and symptoms of potential delayed complications were discussed withthe patient. Return to normal activities tomorrow. Written discharge instructionswere provided to the patient. Jorge Mendoza MD 10/14/2023 1:43:38 PM This report has been signed electronically. Evgeny Blakely MD [facility] documented in this encounter Visit Diagnoses Diagnosis Special screening for malignant neoplasms, colon documented in this encounter Administered Medications Inactive Administered Medications - up to 3 most recent administrations Medication Order MAR Action Action Date Dose Rate Site isolyte-S pH 7.4 infusion Intravenous, at 100 mL/hr, Plasma-LYTE 148, isolyte-S, and isolyte-S pH 7.4 are considered equivalent - including for MAR barcode scanning., CONTINUOUS, Starting on Glendy 10/14/23 at 1245, Until Glendy 10/14/23 at 1839, Pre-Op Continue from Pre-Op 10/14/2023 1:12 PM EDT 100 mL/hr New Bag 10/14/2023 12:29 PM EDT 100 mL/hr documented in this encounter Active and Recently Administered Medications Times are shown in EDT. Continuous Medication Order 10/12/2023 10/13/2023 10/14/2023 isolyte-S pH 7.4 infusion Intravenous, at 100 mL/hr, Plasma-LYTE 148, isolyte-S, and isolyte-S pH 7.4 are considered equivalent - including for MAR barcode scanning., CONTINUOUS, Starting on Glendy 10/14/23 at 1245, Until Glendy 10/14/23 at 1839, Pre-Op 1229 (New Bag - Prov ider: Ayah Millard RN)1312 (Continue from Pre-Op - Provider: Felisa Frey CRNA)1340 (Anes Intra-Op Fluid - Provider: Felisa Frey CRNA) documented in this encounter Care Teams Orange Peel Operator Relationship Specialty Start Date End Date Evgeny Blakely MD [address] [place] [address] PCP - General Family Medicine 08/14/14 documented as of this encounter
--- OUTSIDE RECORDS SUMMARY | 2024-02-16 13:35 | External Medical Summary | Summary of Care ---
Author Name Unknown Organization [facility] Address [address] [place] [address] Phone [phone] Care Team Providers Care Sheet Hanger Name Role Phone Evgeny Blakely MD Primary Care Provider + Reason for Visit * Reason Comments Outpatient Testing Encounter Details Date Type Department Care Team (Late st Contact Info) Description 09/23/2023 8:10 AM EDT Laboratory Laboratory, [facility] 132 [place] [phone] [facility] [address] [place] [address] Elevated glucose; Hyperlipidemia, unspecified hyperlipidemia type Allergies No known active allergiesdocumented as of this encounter (statuses as of 09/23/2023) Medications Medication Sig Dispensed Refills Start Date End Date Status NATURAL SUPPLEMENT [employer] Eczema and Psoriasis Cream - apply as directed Active Finasteride 5 MG Oral Tablet (Proscar) Take 1 Tablet by mouth in the morning. 90 Tablet 3 03/16/2023 Active Tamsulosin HCl 0.4 MG Oral Capsule (Flomax)Indications :BPH with obstruction/lower urinary tract symptoms Take 1 Capsule by mouth in the morning. 90 Capsule 3 06/30/2023 Active documented as of this encounter (statuses as of 09/23/2023) Active Problems Problem Noted Date Diagnosed Date [...] as of this encounter (statuses as of 09/23/2023) Resolved Problems Problem Noted Date Diagnosed Date Resolved Date Elevated BP 05/04/2013 10/05/2014 documented as of this encounter (statuses as of 09/23/2023) Immunizations Name Administration Dates Next Due COVID-19 mRNA, LNP-s, No Pre serve, 2-Dose Series ([employer]) 11/27/2020,11/06/2020 COVID-19, LNP-s, No Preserve , Avinash-sucrose, [...] money to get more. Never true 09/20/2023 Sex and Gender Information Value Date Recorded Sex Assigned at Male 09/20/2023 8:27 AM EDT Gender Identity Male 09/20/2023 8:27 AM EDT Sexual Orientation Straight 09/20/2023 8: 27 AM EDT Job Start Date Occupation Industry Not on file Not on file Not on file documented as of this encounter Plan of Treatment Upcoming Encounters Date Type Department Care Team (Latest Contact Info) Description 10/14/2023 1:00 PM EDT Hospital Encounter ENDO [facility], Endoscopy Room [facility] [address] [phone] Jorge Mendoza MD [address] [place] [address] 10/14/2023 1:00 PM EDT - 10/14/2023 1:30 PM EDT Surgery ENDO [facility], Endoscopy Room [facility] [address] [phone] Jorge Mendoza MD [address] [place] [address] COLONOSCOPY FLEXIBLE PROXIMAL DIAGNOSTIC 02/09/2024 8:30 AM EDT Office Visit Urology, [facility] [address] [place] [address] Daryl Pina MD [address] [place] [address] 02/21/2024 9:20 AM EST Office Visit Family Practice [facility] [address] [place] [address] Rangel Contreras CRNP [address] [place] [address] 09/28/2024 8:20 AM EDT Office Visit Family Practice [facility] [address] [place] [address] Evgeny Blakely MD [address] [place] [address] Pending Results Name Type Priority Associated Diagnoses Date /Time BASIC METABOLIC PANEL Lab Routine Elevated glucose 09/23/2023 8:07 AM EDT LIPID PANEL WITH DIRECT LDL IF TG IS HIGH Lab Routine Hyperlipidemia, unspecified hyperlipidemia type 09/23/2023 8:07 AM EDT Scheduled Procedures Name Priority Associated Diagnoses Date/Ti va COLONOSCOPY FLEXIBLE PROXIMAL DIAGNOSTIC Special screening for malignant neoplasms, colon 10/14/2023 1:00 PM EDT Health Maintenance Due Date Last Done Comments Hepatitis C Screening 09/13/1975 Cologuard 2002 Colonoscopy 2002 Sigmoidoscopy 2002 Colorectal Cancer Screening 03/22/2020 Fecal Occult Blood Test 03/22/2020 03/22/2019, 10/08 AAA Screening 2022 COVID-19 Vaccine ( season) 2022 06/03/2021, 11/27/2020, 11/06/2020 Depression Screening 09/19/2024 09/20/2023 Diabetes Screening 02/10/2026 02/10/2023, 1 05/15/2018, 05/05/2013 Lipid Panel 02/11/2028 02/10/2023, 02/18, 05/05/2013 DTaP,Tdap,and Td Vaccines (3 - Td or Tdap) 09/19/2033 09/20/2023, 05/04/2013 Zoster Vaccines Completed 12/30/2019, 04/26/2019 Influenza Vaccine (FLU shot) Completed , 12/30/2019, 03/15/2019, Additional history exists Pneumococcal Vaccine: 65+ Years Completed 02/10/2023 GARDASIL-HPV IMMUNIZATION SERIES Aged Out No longer eligible based on patient's age to complete this topic Hepatitis B Aged Out No longer eligi ble based on patient's age to complete this topic MENINGOCOCCAL (MENACTRA/MENVEO) Aged Out No longer eligible based on patient's age to complete this topic documented as of this encounter Medical Devices Not on filedocumented as of this encounter Visit Diagnoses Diagnosis Elevated glucose Other abnormal glucose Hyperlipidemia, unspecified hyperlipidemia type Special screening for malignant neoplasms, colon documented in this encounter Care Teams Sheet Hanger Relationship Specialty Start Date End Date Evgeny Blakely MD [address] [place] [address] PCP - General Family Medicine 08/14/14 documented as of this encounter
--- OUTSIDE RECORDS SUMMARY | 2024-02-16 13:35 | External Medical Summary | Summary of Care ---
Author Name Unknown Organization [facility] Address [address] [place] [address] Phone [phone] Care Team Providers Care Finance Professor Name Role Phone Evgeny Blakely MD Primary Care Provider + Reason for Visit * Reason Comments Outpatient Testing Encounter Details Date Type Department Care Team (Late st Contact Info) Description 02/09/2024 9:40 AM EDT Laboratory Laboratory, [facility] [address] [place] [phone] [facility] [address] [place] [address] Elevated prostate specific antigen (PSA) Allergies No known active allergiesdocumented as of this encounter (statuses as of 02/09/2024) Medications Medication Sig Dispensed Refills Start Date End Date Status NATURAL SUPPLEMENT [employer] Eczema and Psoriasis Cream - apply as directed Active Tamsulosin HCl 0.4 MG Oral Capsule (Flomax)Indications :BPH with obstruction/lower urinary tract symptoms Take 1 Capsule by mouth in the morning. 90 Capsule 3 06/30/2023 Active Finasteride 5 MG Oral Tablet (Proscar) Take 1 Tablet by mouth in the morning. 90 Tablet 3 02/09/2024 Active documented as of this encounter (statuses as of 02/09/2024) Active Problems Problem Noted Date Diagnosed Date History of 2019 novel coronavirus disease (COVID -19) 09/03/2021 Psoriasis 12/30/2019 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 10/01 FOB ordered Atopic dermatitis and related condition 05/04/19 14 Routine general medical exam ination at a health care facility 05/04/2013 Overview: 10/10 colon mult polyps--aretha 1y CLIPPED. Mult tubular adenoma. 04/06 FOB WNL Declined colonoscopy (cost) 10/01 stress echo WNL documented as of this encounter (statuses as of 02/09/2024) Resolved Problems Problem Noted Date Diagnosed Date Resolved Date Elevated BP 05/04/2013 10/05/2014 documented as of this encounter (statuses as of 02/09/2024) Immunizations Name Administration Dates Next Due COVID-19 mRNA, LNP-s, No Pre serve, 2-Dose Series ([email or web address]) 11/27/2020,11/06/2020 COVID-19, LNP-s, No Preserve , Avinash-sucrose, Ages 12+ ([email or web address]) 06/03/2021 Pneumococcal Conjugate Vaccine, 20-valent (Prevn ar20) 02/10/2023 Seasonal Influenza, MDCK, Trivalent, PF, (Flucel vax) 05/04/2013 Seasonal Influenza, PF, 6 M & [...] Care Team (Late st Contact Info) Description 02/21/2024 9:20 AM EST Office Visit [facility] 132 [facility] [place] [address] Rangel Contreras CRNP [address] [place] [address] 09/28/2024 8:20 AM EDT Office Visit [facility] 132 [facility] [place] [address] Evgeny Blakely MD 132 [facility] [place] [address] 02/14/2025 8:30 AM EDT Office Visit Urology, [facility] [address] [facility] [place] [address] Daryl Pina MD [address] [place] [address] Pending Results Name Type Priority Associated Diagnoses Date /Time PSA WITH FREE PSA IF INDICATED Lab Routine Elevated prostate specific antigen (PSA) 02/09/2024 9:37 AM EDT Scheduled Procedures Name Priority Associated Diagnoses Date/Ti me COLONOSCOPY FLEXIBLE PROXIMA L DIAGNOSTIC Recall History of colonic polyps Health Maintenance Due Date Last Done Comments Hepatitis C Screening 09/13/1975 Cologuard 2002 Sigmoidoscopy 2002 Fecal Occult Blood Test 03/22/2020 03/22/2019, 10/08 Adult Wellness Visit 09/13/2023 COVID-19 Vaccine ( season) 2023 06/03/2021, 11/27/2020, 11/06/2020 Influenza Vaccine (FLU shot) (#1) 2023 02/10/2023, 12/30/2019, 03/15/2019, Additional history exists Depression Screening 09/19/2024 09/20/2023 Colonoscopy 10/13/2024 10/14/2023, 10/14/2023 Colorectal Cancer Screening 10/13/2024 Diabetes Screening 02/10/2026 02/10/2023, 1 05/15/2018, 05/05/2013 Lipid Panel 02/11/2028 02/10/2023, 11/2 10/2018, 05/05/2013 DTap/Tdap Vaccines (3 - Td or Tdap) 09/19/2033 09/20/2023, 05/04/2013 Zoster Vaccines Completed 12/30/2019, 04/26/2019 Pneumococcal Vaccine: 65+ Years Completed 02/10/2023 AAA Screening Completed 09/23/2023 HPV (Gardasil) Vaccine Aged Out No lo nger eligible based on patient's age to complete this topic Hepatitis B Vaccine Aged Out No longe r eligible based on patient's age to complete this topic MENINGOCOCCAL (MENACTRA/MENVEO) Aged Out No longer eligible based on patient's age to complete this topic documented as of this encounter Medical Devices Implanted Type Area Licensed Chemical Spray Technician Device Identifier Shelf Expiration Date Model / Serial / Lot Hemostatic Clip Res 235cm - [id number] Implanted:Qty: 4 on 10/14/2023 by Jorge Mendoza MD at END[facility]COPY [facility] : ENDOSCOPY 02/12/2026 [id number] / / [id number] documented as of this encounter Visit Diagnoses Diagnosis Elevated prostate specific antigen (PSA) documented in this encounter Care Teams Finance Professor Relationship Specialty Start Date End Date Evgeny Blakely MD [address] [place] [address] PCP - General Family Medicine 08/14/14 documented as of this encounter
--- OUTSIDE RECORDS SUMMARY | 2024-02-16 13:35 | External Medical Summary | Summary of Care ---
Author Name Unknown Organization [facility] Address [address] [facility] [address] Phone [phone] Care Team Providers Care Furniture Reproducer Name Role Phone Evgeny Trejo MD Primary Care Provider + Reason for Visit * Reason Comments Follow Up Encounter Details Date Type Department Care Team (Late st Contact Info) Description 02/09/2024 8:30 AM EDT Office Visit Urology, [facility] 132 [facility] [place] [address] Daryl Pina MD [address] [place] [address] Elevated prostate specific antigen (PSA)*; BPH with obstruction/lower urinary tract symptoms Allergies No known active allergiesdocumented as of this encounter (statuses as of 02/09/2024) Medications Medication Sig Dispensed Refills Start Date End Date Status NATURAL SUPPLEMENT [employer] Eczema and Psoriasis Cream - apply as directed Active Tamsulosin HCl 0.4 MG Oral Capsule (Flomax)Indicati ons:BPH with obstruction/lowe r urinary tract symptoms Take 1 Capsule by mouth in the morning. 90 Capsule 3 06/30/2023 Active Finasteride 5 MG Oral Tablet (Proscar) Take 1 Tablet by mouth in the morning. 90 Tablet 3 02/09/2024 Active Finasteride 5 MG Oral Tablet (Proscar) Take 1 Tablet by mouth in the morning. 90 Tablet 3 03/16/2023 02/09/2024 Discontinued (Refill) documented as of this encounter (statuses as [...] mRNA, LNP-s, No Pre serve, 2-Dose Series ([employer]) 11/27/2020,11/06/2020 COVID-19, LNP-s, No Preserve , Avinash-sucrose, [...] on file documented as of this encounter Progress Notes * Daryl Pina MD - 02/09/2024 8:30 AM EDT [id number] PCP: EVGENY TREJO 132 [facility] [place] [address] [phone] Video higher level teaching assistant declined. [place] is a 68 year old male, who presents for six-month follow-up of his PSA value. Patient's past notes reviewed. Significant improvement in his PSA is noted. Patient notes ejaculatory dysfunction, good quality erections. Patient denies hematuria or UTI. BPH: Patient is being seen for BPH today. He has previously had the following symptoms: slow stream, postvoid dribbling, nocturia x 3-5, and hesitancy, improved with meds. Severity is moderate. He has tried tamsulosin previously. Finasteride and tamsulosin provided February 2023. He has previously had no surgery done. Problem has been present for years. Problem is getting better. Elevated PSA: Patient is being seen for evaluation of an elevated PSA. Previous evaluation includes referral to Urology. Patient has been on tamsulosin and finasteride. PSA Results: Lab Results Component Value Date/Time PSA - [facility] 3.25 06/30/2023 09:10 AM PSA - [facility] 5.00 (H) 02/10/2023 08:12 AM PSA - [facility] 1.11 03/15/2019 08:27 AM Current Outpatient Medications Medication Sig Dispense Refill NATURAL SUPPLEMENT [employer] Eczema and Psoriasis Cream - apply as directed (Patient not taking: Reported on 10/05/2023) Finasteride 5 MG Oral Tablet (Proscar) Take 1 Tablet by mouth in the morning. (Patient not taking: Reported on 10/05/2023) 90 Tablet 3 Tamsulosin HCl 0.4 MG Oral Capsule (Flomax) Take 1 Capsule by mouth in the morning. (Patient not taking: Reported on 10/05/2023) 90 Capsule 3 No current facility-administered medications for this visit. Review of patient's allergies indicates: No Known Allergies Social History: Social History Tobacco Use Smoking status: Former Smokeless tobacco: Never Tobacco comments: only smoked a couple years, quitted more than 15 years ago Substance Use Topics Alcohol use: No Vaping/E-Cigarette Use Vaping/E-Cigarette Substances Vaping/E-Cigarette Devices Family History Problem Relation Name Age of Onset Diabetes Mother old age Other (accident) Father Other (42YO- ?sepsis) Brother No Past Hx Sister Donna Roland. No Past Hx Daughter 3 daughters Past Surgical History: Procedure Laterality Date COLONOSCOPY, DIAGNOSTIC (RECTUM) 10/14/2023 poor prep/biopsies show adenomatous and hyperplastic polyps/recall 1 year/COLONOSCOPY FLEXIBLE PROXIMAL DIAGNOSTIC performed by Jorge Mendoza MD at ENDOSCOPY [facility] REMOVAL OF APPENDIX 04/19/1968 Past Medical History: Diagnosis Date BPH with obstruction/lower urinary tract symptoms 03/15/2019 Mild no meds 2019 Psoriasis 12/30/2019 Patient Active Problem List Diagnosis Atopic dermatitis and related condition Routine general medical examination at a health care facility Screen for colon cancer BPH with obstruction/lower urinary tract symptoms Psoriasis History of 2019 novel coronavirus disease (COVID-19) Constitutional: (-) fever and (-) chills Eyes: (+) corrective lenses Male : see HPI Neurology: (-) negative: no focal neurologic defect Psychiatry: (-) negative: no depression or anxiety Physical Exam Nursing note reviewed. Constitutional: General: He is not in acute distress. Appearance: Normal appearance. He is not ill-appearing or toxic-appearing. HENT: Head: Normocephalic and atraumatic. Right Ear: External ear normal. Left Ear: External ear normal. Nose: Nose normal. Mouth/Throat: Mouth: Mucous membranes are moist. Cardiovascular: Pulses: Normal pulses. Pulmonary: Effort: Pulmonary effort is normal. Abdominal: Palpations: Abdomen is soft. Tenderness: There is no abdominal tenderness. Genitourinary: Comments: 55 gram prostate, rubbery, no induration or nodules, no seminal vesicle abnormalities, normal rectal tone. Musculoskeletal: Cervical back: Normal range of motion and neck supple. Lymphadenopathy: Cervical: No cervical adenopathy. Skin: Coloration: Skin is not cyanotic or pale. Neurological: Mental Status: He is alert and oriented to person, place, and time. Psychiatric: Attention and Perception: Attention normal. Mood and Affect: Mood and affect normal. Impression/Plan: 68 yo male with a history of elevated and fluctuating PSA. Patient will have a PSA today. His corrected PSA value remains elevated. Refills of finasteride provided. Will refill tamsulosin when due. Will move out to yearly visits, will contact if worrisome changes are present with PSA. Above content is personally reviewed. Patient vocalizes good understanding of the treatment plan. Daryl Pina MD 7:33 AM 02/09/2024 documented in this encounter Nursing Notes * Fatemeh Grant LPN - 02/09/2024 8:20 AM EDT 7 month ret. Patient presents alone. Taking tamsulosin, finasteride. No complaints. documented in this encounter Plan of Treatment Upcoming Encounters Date Type Department Care Team (Late st Contact Info) Description 02/21/2024 9:20 AM EST Office Visit [facility] [address] [place] [address] Rangel Contreras CRNP [address] [place] [address] 09/28/2024 8:20 AM EDT Office Visit [facility] [address] [place] [address] Evgeny Trejo MD [address] [place] [address] 02/14/2025 8:30 AM EDT Office Visit Urology, [facility] [address] [place] [address] Daryl Pina MD [address] [place] [address] Scheduled Orders Name Type Priority Associated Diagnoses Orde r Schedule PSA Lab Routine Elevated prostate specific antigen (PSA) Expected: 02/09/2024, Expires: 02/08/2025 PSA Lab Routine Elevated prostate specific antigen (PSA) Expected: 01/15/2025 (Approximate), Expires: 02/08/2025 Scheduled Procedures Name Priority Associated Diagnoses Date/Ti [...] 05/05/2013 Lipid Panel 02/11/2028 02/10/2023, 02/18, 05/05/2013 DTap/Tdap Vaccines (3 - Td or [...] this encounter Medical Devices Implanted Type Area Cloth Examiner Machine Device Identifier Shelf Expiration Date Model / Serial / Lot Hemostatic Clip Res 235cm - [id number] Implanted:Qty: 4 on 10/14/2023 by Jorge Mendoza MD at ENDOSCOPY [facility] : ENDOSCOPY 02/12/2026 [id number] / / [id number] documented as of this encounter Visit Diagnoses Diagnosis Elevated prostate specific antigen (PSA)- Primary BPH with obstruction/lower urinary tract symptoms Hypertrophy of prostate with urinary obstruction and other lower urinary tract symptoms (LUTS) documented in this encounter Care Teams Furniture Reproducer Relationship Specialty Start Date End Date Evgeny Trejo MD 132 [facility] [place] [address] PCP - General Family Medicine 08/14/14 documented as of this encounter
--- OUTSIDE RECORDS SUMMARY | 2024-02-16 13:35 | External Medical Summary | Summary of Care ---
Author Name Unknown Organization [facility] Address [address] [facility] [place] [address] Phone [phone] Care Team Providers Care House Moving Supervisor Name Role Phone Evgeny Blakely MD Primary Care Provider + Reason for Visit * Reason Onset Date Comments Pre Op Discussion 10/05/2023 Encounter Details Date Type Department Care Team (Late st Contact Info) Description 10/05/2023 Telephone OR [facility], Operating Room [facility] [address] [place] [phone] Jorge Mendoza MD [address] [place] [address] Pre Op Discussion Allergies No known active allergiesdocumented as of this encounter (statuses as of 10/05/2023) Medications Medication Sig Dispensed Refills Start Date End Date Status NATURAL SUPPLEMENT [employer] Eczema and Psoriasis Cream - apply as directed Active Finasteride 5 MG Oral Tablet (Proscar) Take 1 Tablet by mouth in the morning. 90 Tablet 3 03/16/2023 Active Additional Information Patient not taking.Reported on 10/05/2023 Tamsulosin HCl 0.4 MG Oral Capsule (Flomax)Indication s:BPH with obstruction/lower urinary tract symptoms Take 1 Capsule by mouth in the morning. 90 Capsule 3 06/30/2023 Active Additional Information Patient not taking.Reported on 10/05/2023 documented as of this encounter (statuses as of 10/05/2023) Active Problems Problem Noted Date Diagnosed Date [...] as of this encounter (statuses as of 10/05/2023) Resolved Problems Problem Noted Date Diagnosed Date Resolved Date Elevated BP 05/04/2013 10/05/2014 documented as of this encounter (statuses as of 10/05/2023) Immunizations Name Administration Dates Next Due COVID-19 mRNA, LNP-s, No Pre serve, 2-Dose Series (Pfizer) 11/27/2020,11/06/2020 COVID-19, LNP-s, No Preserve , Avinash-sucrose, [...] Encounter ENDO [facility], Endoscopy Room [facility] [address] [place] [phone] Jorge Mendoza MD [address] [place] [address] 10/14/2023 1:00 PM EDT - 10/14/2023 1:30 PM EDT Surgery ENDO [facility], Endoscopy Room [facility] [address] [place] [phone] Jogre Mendoza MD [address] [place] [address] COLONOSCOPY FLEXIBLE PROXIMAL DIAGNOSTIC 02/09/2024 8:30 AM EDT Office Visit Urology, [facility] [address] [place] [address] Daryl Pina MD [address] [place] [address] 02/21/2024 9:20 AM EST Office Visit [facility] [address] [place] [address] Rangel Contreras CRNP [address] [place] [address] 06/12/2024 8:00 AM EST Office Visit D[facility] [address] [facility] [place] [address] Alban Bledsoe MD [address] [place] [address] 09/28/2024 8:20 AM EDT Office Visit [facility] [address] [place] [address] Evgeny Blakely MD [address] [place] [address] Scheduled Procedures Name Priority Associated Diagnoses Date/Ti me COLONOSCOPY FLEXIBLE PROXIMAL DIAGNOSTIC Special screening for [...] Not on filedocumented as of this encounter Care Teams House Moving Supervisor Relationship Specialty Start Date End Date Evgeny Blakely MD [address] [place] [address] PCP - General Family Medicine 08/14/14 documented as of this encounter
--- OUTSIDE RECORDS SUMMARY | 2024-02-16 13:35 | External Medical Summary ---
Author Name Unknown Address Unknown Organization K01:[facility] [place] [address] [facility] [place] [address] Laboratory Report Ordering Provider Test Date Status NEIL GHOTRA 02/09/2024 09:37:05 Final Observation Date Value Abnormality Reference (Units ) Status Triglyceride 02/09/2024 09:37:05 245 Above high normal <=174 (mg/dL) Final Triglyceride Reference Range s (mg/dL):
<150 Acceptable
150-174 Borderline high
175-499 High
>=500 Very high Cholesterol 02/09/2024 09:37:05 270 Above high normal <200 (mg/dL) Final Total Cholesterol Reference Ranges (mg/dL):
<200 Desirable
200-239 Borderline high
>=240 High HDL 02/09/2024 09:37:05 57 >39 (mg/dL ) Final HDL Cholesterol Reference Ra nges (mg/dL):
>=60 High (Desirable)
<50 Low (Undesirable) For Females
<40 Low (Undesirable) For Males NON-HDL CHOLESTEROL 02/09/2024 09:37:05 213 Above high normal <=159 (mg/dL) Final Non-HDL Cholesterol Referenc e Range (mg/dL):
<100 Target level for high risk ASCVD patient
<130 Optimal for general population
130-159 Near optimal for general population
160-189 Borderline High
190-219 High
>=220 Very High LDL, (calculated) 02/09/2024 09:37:05 164 Above high n ormal <=129 (mg/dL) Final LDL Cholesterol Reference Ra nges (mg/dL):
<70 Target level for high risk ASCVD patient
<100 Optimal for general population
100-129 Near optimal for general population
130-159 Borderline high
160-189 High
>=190 Very high Performing Location [facility] [place] [facility] [address] [facility] [address]
--- OUTSIDE RECORDS SUMMARY | 2024-02-16 13:35 | External Medical Summary | Summary of Care ---
Author Name Unknown Organization [facility] Address [address] [place] [address] Phone [phone] Care Team Providers Care Environmental Science Instructor Name Role Phone Evgeny Blakely MD Primary Care Provider + Reason for Visit * Reason Comments Outpatient Testing Encounter Details Date Type Department Care Team (Late st Contact Info) Description 09/23/2023 8:10 AM EDT Laboratory Laboratory, [facility] 132 [place] [phone] [facility] [address] [place] [address] Elevated glucose; Hyperlipidemia, unspecified hyperlipidemia type Allergies [...] mRNA, LNP-s, No Pre serve, 2-Dose Series ([employer]) 11/27/2020,11/06/2020 COVID-19, LNP-s, No Preserve , Avinash-sucrose, [...] [facility], Endoscopy Room [facility] [address] [place] [phone] Jorge Mendoza MD [address] [place] [address] 10/14/2023 1:00 PM EDT - 10/14/2023 1:30 PM EDT Surgery ENDO [facility], Endoscopy Room [facility] [address] [place] [phone] Jorge Mendoza MD [address] [place] [address] COLONOSCOPY FLEXIBLE PROXIMAL DIAGNOSTIC 02/09/2024 8:30 AM EDT Office Visit Urology, [facility] [address] [place] [address] Daryl Pina MD [address] [place] [address] [place] [address] 02/21/2024 9:20 AM EST Office Visit Family Practice [facility] [address] [place] [address] Rangel Contreras CRNP [address] [place] [address] 09/28/2024 8:20 AM EDT Office Visit Family [facility] [address] [place] [address] Evgeny Blakely MD [address] [place] [address] Scheduled Procedures Name Priority Associated Diagnoses Date/Ti [...] colon documented in this encounter Care Teams Environmental Science Instructor Relationship Specialty Start Date End Date Evgeny Blakely MD [address] [place] [address] PCP - General Family Medicine 08/14/14 documented as of this encounter
--- OUTSIDE RECORDS SUMMARY | 2024-02-16 13:35 | External Medical Summary ---
Author Name Unknown Address Unknown Organization K01:[facility] - [address] [place] [address] Laboratory Report Ordering Provider Test Date Status NEIL GHOTRA 02/09/2024 09:37:05 Final Observation Date Value Abnormality Reference (Units ) Status HbA1C 02/09/2024 09:37:05 5.6 4.0-5.6 (% ) Final The use of HbA1c to monitor glycemic status is based on normal hemoglobin and HbA composition. This test should not be used in patients with abnormal hemoglobin that affects the half life of the red blood cell or the in vivo glycation rates. Glucose, estimated average 02/09/2024 09:37:05 114 <126 (mg/dL) Final Performing Location [facility] - [address] [facility] [address]
--- OUTSIDE RECORDS SUMMARY | 2024-02-16 13:35 | External Medical Summary | Summary of Care ---
Author Name Unknown Organization [facility] Address [address] [facility] [place] [address] Phone [phone] Care Team Providers Care Professional Development Instructor Name Role Phone Evgeny Blakely MD Primary Care Provider + Reason for Visit * Reason Onset Date Comments Patient Instructions 10/05/2023 colonoscopy Encounter Details Date Type Department Care Team (Late st Contact Info) Description 10/05/2023 Telephone OR [facility], Operating Room [facility] [address] [place] [phone] Fanny Sultana, RN Patient Instructions (colonoscopy) Allergies No known active allergiesdocumented as of [...] mRNA, LNP-s, No Pre serve, 2-Dose Series ([employer]) 11/27/2020,11/06/2020 COVID-19, LNP-s, No Preserve , Avinash-sucrose, [...] Encounter ENDO [facility], Endoscopy Room [facility] [address] [place] [phone] Jorge Mendoza MD [address] [place] [address] 10/14/2023 1:00 PM EDT - 10/14/2023 1:30 PM EDT Surgery ENDO [facility], Endoscopy Room [facility] [address] [place] [phone] Jorge Mendoza MD [address] [place] [address] COLONOSCOPY FLEXIBLE PROXIMAL DIAGNOSTIC 02/09/2024 8:30 AM EDT Office Visit Urology, [facility] [address] [place] [address] Daryl Pina MD [address] [facility] [address] [place] [address] 02/21/2024 9:20 AM EST Office Visit Family Practice [facility] [address] [place] [address] Rangel Contreras CRNP [address] [place] [address] 06/12/2024 8:00 AM EST Office Visit Dermatology [facility] [place] [address] [facility] [place], [place] [address] Alban Bledsoe MD [address] [facility] [place] [address] 09/28/2024 8:20 AM EDT Office Visit Family Practice [facility] [address] [place] [address] Evgeny Blakely MD [address] [place] [address] Scheduled Procedures Name Priority Associated Diagnoses Date/Ti [...] filedocumented as of this encounter Care Teams Professional Development Instructor Relationship Specialty Start Date End Date Evgeny Blakely MD [address] [place] [address] PCP - General Family Medicine 08/14/14 documented as of this encounter
--- OUTSIDE RECORDS SUMMARY | 2024-02-16 13:35 | External Medical Summary | Summary of Care ---
Author Name Unknown Organization [facility] Address [address] [place] [address] Phone [phone] Care Team Providers Care Desizing Machine Back Tender Name Role Phone Evgeny Blakely MD Primary Care Provider + Reason for Visit * Reason Comments Outpatient Testing Encounter Details Date Type Department Care Team (Late st Contact Info) Description 09/23/2023 8:10 AM EDT Laboratory Laboratory, [facility] 132 [place] [phone] [facility] 132 [place] [address] Elevated glucose; Hyperlipidemia, unspecified hyperlipidemia type Allergies [...] mRNA, LNP-s, No Pre serve, 2-Dose Series ([employer]) 11/27/2020,11/06/2020 COVID-19, LNP-s, No Preserve , Avinash-sucrose, [...] Department Care Team (Latest Contact Info) Description 09/23/2023 8:30 AM EDT Imaging Vascular Lab, [facility] 2nd Floor, [place] [address] [place] [address] Tobacco use disorder 10/14/2023 1:00 PM EDT Hospital Encounter ENDO [facility], Endoscopy Room [facility] [address] [place] [phone] Jorge Mendoza MD [address] [place] [address] 10/14/2023 1:00 PM EDT - 10/14/2023 1:30 PM EDT Surgery ENDO [facility], Endoscopy Room [facility] [address] [place] [phone] Jorge Mendoza MD [address] [place] [address] COLONOSCOPY FLEXIBLE PROXIMAL DIAGNOSTIC 02/09/2024 8:30 AM EDT Office Visit Urology, [facility] [address] [place] [address] Daryl Pina MD [address] [place] [address] [place] [address] 02/21/2024 9:20 AM EST Office Visit Family Practice [facility] [address] [place] [address] Rangel Contreras CRNP [address] [place] [address] 09/28/2024 8:20 AM EDT Office Visit Family Practice [facility] [address] [place] [address] Evgeny Blakely MD [address] [place] [address] Pending Results Name Type Priority Associated Diagnoses Date /Time HEMOGLOBIN A1C Lab Routine Elevated glucose 09/23/2023 8:07 AM EDT BASIC METABOLIC PANEL Lab Routine Elevated glucose [...] as of this encounter Visit Diagnoses Diagnosis Tobacco use disorder Elevated glucose Other abnormal glucose Hyperlipidemia, unspecified hyperlipidemia type Special screening for malignant neoplasms, colon documented in this encounter Care Teams Desizing Machine Back Tender Relationship Specialty Start Date End Date Evgeny Blakely MD 132 [facility] [place] [address] PCP - General Family Medicine 08/14/14 documented as of this encounter
--- OUTSIDE RECORDS SUMMARY | 2024-02-16 13:35 | External Medical Summary ---
Author Name Unknown Address Unknown Organization K01:[facility] - [address] [place] [address] Laboratory Report Ordering Provider Test Date Status YELENA ALMEIDA 02/09/2024 09:37:05 Final Observation Date Value Abnormality Reference (Units ) Status PSA 02/09/2024 09:37:05 2.51 <4.10 (ng/ mL) Final Total PSA is within referenc e interval. Free PSA testing is not indicated. Performing Location [facility] - [address] [place] [address]
--- OUTSIDE RECORDS SUMMARY | 2024-02-16 13:35 | External Medical Summary | Summary of Care ---
Author Name Unknown Organization [facility] Address [address] [place] [address] Phone [phone] Care Team Providers Care Backend Python Developer Name Role Phone Evgeny Blakely MD Primary Care Provider + Reason for Referral * Evaluate & Treat - Unlimited Visits (Within 10 days (routine)) - Pending Review Specialty Diagnoses / Procedures Referred By David gagnon Referred To Contact Dermatology Diagnoses Seborrheic keratosis Evgeny Blakely MD [address] [place] [address] Referral ID Status Reason Start Date Expiration Date Visits Requested Visits Authorized [id number] Pending Review Specialty Services Required 09/20/[phone] Question Answer Referral Priority Within 10 days (routine) Where should this appointment be scheduled? [facility] Are you referring the patient for Mohs Surgery and have a current positive skin cancer biopsy result? No What is the reason for the patient referral? Rash/Skin Check/Eval of Lesion or Mole Comments Mult nevi, [place], [place] Reason for Visit * Reason Onset Date Comments Physical-Exam Yearly physical Immunizations 09/20/2023 Encounter Details Date Type Department Care Team (Latest Contact Info) Description 09/20/2023 8:20 AM EDT Office Visit [facility] [address] [place] [address] Evgeny Blakely MD [address] [place] [address] Nasal congestion*; Need for rjnctwgnio-pbcvtcs-mniz ussis (Tdap) vaccine; Hyperlipidemia, unspecified hyperlipidemia type; Elevated glucose; Tobacco use disorder; BPH with obstruction/lower urinary tract symptoms; Seborrheic keratosis; Abrasion of left index finger, initial encounter Allergies No known active allergiesdocumented as of this encounter (statuses as of 09/20/2023) Medications Medication Sig Dispensed Refills Start Date End Date Status NATURAL SUPPLEMENT [employer] Eczema and Psoriasis Cream - apply as directed Active Finasteride 5 MG Oral Tablet (Proscar) Take 1 Tablet by mouth in the morning. 90 Tablet 3 03/16/2023 Active Tamsulosin HCl 0.4 MG Oral Capsule (Flomax)Indication s:BPH with obstruction/lower urinary tract symptoms Take 1 Capsule by mouth in the morning. 90 Capsule 3 06/30/2023 Active fluticasone (FLONASE ALLERGY RELIEF) 50 MCG/ACT nasal spray Administer 1 [place] into nostril in the morning. 4 Discontinue d(Medicatio n List Clean Up) montelukast (SINGULAIR) 10 MG TabletIndications: Mild intermittent reactive airway disease without complication,Non-s easonal allergic rhinitis due to pollen Take 1 Tab by mouth daily. 90 Tab 5 12/12/2018 4 Discontinue d(Medicatio n List Clean Up) triamcinolone acetonide (ARISTOCORT) 0.1 % cream Apply topically to affected area 2 times a day. To affected area. Right leg 80 g 5 04/26/2019 4 Discontinue d(Medicatio n List Clean Up) methylPREDNISolone (MEDROL DOSEPACK) 4 MG TBPKIndications:Ac united [place] maxillary sinusitis, recurrence not specified follow package directions 21 Tab 06/23/2019 4 Discontinue d(Medicatio n List Clean Up) Fluocinolone Acetonide 0.025 % ointment Apply topically to affected area 2 times a day. Apply to psoriasis on legs/arms 120 g 2 12/30/2019 4 Discontinue d(Medicatio n List Clean Up) Emwppdt-Qxboit-Abq ll Pertussis 5-2.5-18.5 LF-MCG/0.5 Suspension Prefilled Syringe (Boostrix)Indicati ons:Need for diphtheria-tetanus -pertussis (Tdap) vaccine Inject 0.5 mL into a large muscle once for 1 dose. 0.5 mL 09/20/2023 4 Discontinue d(Formulary /Cost) documented as of this encounter (statuses as of 09/20/2023) Active Problems Problem Noted Date Diagnosed Date [...] as of this encounter (statuses as of 09/20/2023) Resolved Problems Problem Noted Date Diagnosed Date Resolved Date Elevated BP 05/04/2013 10/05/2014 documented as of this encounter (statuses as of 09/20/2023) Immunizations Name Administration Dates Next Due COVID-19 mRNA, LNP-s, No Pre serve, 2-Dose Series ([employer]) 11/27/2020,11/06/2020 COVID-19, LNP-s, No Preserve , Avinash-sucrose, Ages 12+ (SEEC AB) 06/03/2021 Pneumococcal Conjugate Vaccine, 20-valent (Prevn ar20) [...] Date Smoking Tobacco: Former Smokeless Tobacco: Never Tobacco Cessation:Counseling Given: Not Answered Comments:only smoked a couple years, quitted more than [...] Sign Reading Time Taken Comments Blood Pressure 136/86 09/20/2023 8:47 AM EDT Pulse 81 09/20/2023 8:29 AM EDT Temperature 36.3 C (97.4 F) 09/20/2023 8:29 AM ED T Respiratory Rate 16 09/20/2023 8:29 AM EDT Oxygen Saturation 95% 09/20/2023 8:29 AM EDT Inhaled Oxygen Concentration - - Weight 95 kg (209 lb 8 oz) 09/20/2023 8:29 AM ED T Height 177.5 cm (5' 9.88") 09/20/2023 8:29 AM ED T Body Mass Index 30.16 09/20/2023 8:29 AM EDT documented in this encounter Patient Instructions * Patient Instructions* Kayla Pearson LPN - 09/20/2023 8:31 AM EDT ~~PATIENT INSTRUCTIONS FOR TDAP VACCINE~~ Possible side effects of TDAP vaccine, (tetanus shot), are usually mild and can include: 1. Soreness or redness at injection site 2. Low grade fever 3. Body aches You may use a fever / pain reducing medication as needed for these symptoms. LET YOUR DOCTOR KNOW IMMEDIATELY IF YOU HAVE DIFFICULTY BREATHING OR SWALLOWING, EXPERIENCE ITCHINGOF FEET OR HANDS, HAVE SWELLING OF EYES, FACE OR INSIDE OF NOSE. documented in this encounter Progress Notes * Evgeny Blakely MD - 09/20/2023 9:09 AM EDT SUBJECTIVE: [place] is a 68 year old male here for Physical-Exam (Yearly physical) and Immunizations . Here for f/u (had CPE in fall). Complaint is nasal congestion for 7 or 8 months after his illness. No purulence. Clear drainage. Heused a nose spray possibly Flonase which did help but his son was not sure if he should continue. Otherwise doing well. Continues to work. Moved to a new home in [facility] with his . She has been taking care of her mother who is 90s and has dementia ROS: Negative except above. 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 7 children 2 grandchildren. (koko GAMBLE,Davy, Catarino, 3 here) Other Topics Concern Not on file Social History Narrative Likes reading, time with family., [place] football Social Determinants of Health Financial Resource Strain: Not on file Food Insecurity: No Food Insecurity (09/20/2023) Hunger Vital Sign Worried About Running Out of Food in the Last Year: Never true Ran Out of Food in the Last Year: Never true Transportation Needs: Not on file Physical Activity: Not on file Stress: Not on file Social Connections: Not on file Intimate Partner Violence: Not on file Housing Stability: Not on file Family History Problem Relation Name Age of Onset Diabetes Mother old age Other (accident) Father Other (42YO- ?sepsis) Brother No Past Hx Sister Dnona Roland. No Past Hx Daughter 3 daughters Current Outpatient Medications Medication Sig Dispense Refill Finasteride 5 MG Oral Tablet (Proscar) Take 1 Tablet by mouth in the morning. 90 Tablet 3 Tamsulosin HCl 0.4 MG Oral Capsule (Flomax) Take 1 Capsule by mouth in the morning. 90 Capsule 3 Eiiptkj-Lflszf-Bczan Pertussis 5-2.5-18.5 LF-MCG/0.5 Suspension Prefilled Syringe (Boostrix) Inject0.5 mL into a large muscle once for 1 dose. 0.5 mL 0 NATURAL SUPPLEMENT [employer] Eczema and Psoriasis Cream - apply as directed No current facility-administered medications for this visit. Physical: BP 136/86 | Pulse 81 | Temp 36.3 C (97.4 F) (Tympanic) | Resp 16 | Ht 1.775 m (5' 9.88") | Wt 95 kg (209 lb 8 oz) | SpO2 95% | BMI 30.16 kg/m | BSA 2.16 m General-No apparent Distress Head, Eyes, Ears, Nose, Throat--Normocephalic, atraumatic clear tympanic membranes bilaterally Mild erythema no rhinorrhea oropharynx no erythema no exudate Neck-Supple Lymph-no lymphadenopathy Lungs-Clear to Auscultation bilaterally Cardiovascular--Regular rate & Rhythm, +s1, s2, no murmur Abdomen-soft, nontender, nondistended + bowel sounds Extremities--no edema Neuro-alert & oriented x3 Skin-mult nevi, [place], Uli K (R09.81) Nasal congestion (primary encounter diagnosis) Plan: trial nasal saline twice daily , if not helpful can add flonase (fluticasone) 2 sprays once or twice a day (Z23) Need for hzvnzbsbka-ztuxuam-klmuihycm (Tdap) vaccine Plan: Lmlxiro-Zcwjao-Azrfm Pertussis 5-2.5-18.5 LF-MCG/0.5 Suspension Prefilled Syringe (Boostrix) (E78.5) Hyperlipidemia, unspecified hyperlipidemia type Plan: LIPID PANEL WITH DIRECT LDL IF TG IS HIGH Declined Rx now--wants to do TLC, aretha in fall (R73.09) Elevated glucose Plan: HEMOGLOBIN A1C, BASIC METABOLIC PANEL counseled on diet/exercise (F17.200) Tobacco use disorder Plan: US AAA SCREEN, VASCULAR LAB In past--screen for AAA (N40.1, N13.8) BPH with obstruction/lower urinary tract symptoms Plan: doing well f/u uro (L82.1) Seborrheic keratosis Plan: DERMATOLOGY REFERRAL OP Rec sun protection/ sunscreen (This note was completed using the dictation program Fluency Direct. As such, there may be misspellings, word substitutions, or other variations that should not change the essence of the clinical content of this encounter note.If there is need for further clarification, please direct questions to the provider listed above.) Evgeny Blakely MD * Kayla Pearson LPN - 09/20/2023 8:31 AM EDT Immunization Administration Documentation Time Out Procedure Performed: Yes Patient Identified (Ask Name/Date of ): Yes Does the patient have a fever greater than 101 degrees today? No Patient allergic to latex? No VFC Stock: No Immunization(s) verified: Yes, Immunization Name: Tdap (Boostrix), VIS Sheet(s) given: Yes Verified Side and Site: Yes Verified Shot(s) with Parent(s)/Patient: Yes documented in this encounter Nursing Notes * Kayla Pearson LPN - 09/20/2023 8:29 AM EDT The patient has been properly identified by confirmation of name and date of . Chief Complaint Patient presents with Physical-Exam Yearly physical documented in this encounter Plan of Treatment Upcoming Encounters Date Type Department Care Team (Latest Contact Info) Description 09/23/2023 8:30 AM EDT Imaging Vascular Lab, [facility] 2nd Floor, [place] [address] [place] [address] 10/14/2023 1:00 PM EDT [facility] [address] [place] [phone] Jorge Mendoza MD [address] [place] [address] 10/14/2023 1:00 PM EDT - 10/14/2023 1:30 PM EDT Surgery ENDO [facility], Endoscopy Room [facility] [address] [place] [phone] Jorge Mendoza MD [address] [place] [address] COLONOSCOPY FLEXIBLE PROXIMAL DIAGNOSTIC 02/09/2024 8:30 AM EDT Office Visit Urology, [facility] [address] [place] [address] Daryl Pina MD [address] [place] [address] [place] [address] 02/21/2024 9:20 AM EST Office Visit [facility] [address] [place] [address] Rangel Contreras CRNP [address] [place] [address] 09/28/2024 8:20 AM EDT Office Visit [facility] [address] [place] [address] Evgeny Blakely MD [address] [place] [address] Scheduled Orders Name Type Priority Associated Diagnoses Orde r Schedule HEMOGLOBIN A1C Lab Routine Elevated glucose Expected: 02/02/2024 (Approximate), Expires: 09/19/2024 BASIC METABOLIC PANEL Lab Routine Elevated glucose Expected: 02/02/2024 (Approximate), Expires: 09/19/2024 LIPID PANEL WITH DIRECT LDL IF TG IS HIGH Lab Routine Hyperlipidemia, unspecified hyperlipidemia type Expected: 02/02/2024 (Approximate), Expires: 09/19/2024 AAA SCREEN, VASCULAR LAB Medical Imaging Routine Tobacco use disorder Expected: 09/20/2023 (Approximate), Expires: 09/19/2024 Scheduled Procedures Name Priority Associated Diagnoses Date/Ti ak COLONOSCOPY FLEXIBLE PROXIMAL DIAGNOSTIC Special screening for malignant neoplasms, colon 10/14/2023 1:00 PM EDT Scheduled Referrals Name Type Priority Associated Diagnoses Orde r Schedule DERMATOLOGY REFERRAL OP Referral Within 10 days (routine) Seborrheic keratosis Ordered: 09/20/2023 Health Maintenance Due Date Last Done Comments [...] as of this encounter Visit Diagnoses Diagnosis Nasal congestion- Primary Other diseases of nasal cavity and sinuses Need for xtyfjwwzev-gtukghy-lmeqidzen (Tdap) vaccine Need for prophylactic vaccination with combined gwrpqylqjb-fwujhno-suuwjgmio (DTP) vaccine Hyperlipidemia, unspecified hyperlipidemia type Elevated glucose Other abnormal glucose Tobacco use disorder BPH with obstruction/lower urinary tract symptoms Hypertrophy of prostate with urinary obstruction and other lower urinary tract symptoms (LUTS) Seborrheic keratosis Other seborrheic keratosis Abrasion of left index finger, initial encounter Special screening for malignant neoplasms, colon documented in this encounter Care Teams Backend Python Developer Relationship Specialty Start Date End Date Evgeny Blakely MD [address] [facility] [place] [address] PCP - General Family Medicine 08/14/14 documented as of this encounter
--- OUTSIDE RECORDS SUMMARY | 2024-02-16 13:35 | External Medical Summary | Summary of Care ---
Author Name Unknown Organization [facility] Address [address] [place] [address] Phone [phone] Care Team Providers Care Rotary Helper Name Role Phone Evgeny Blakely MD Primary Care Provider + Reason for Visit * Reason Comments Outpatient Testing Encounter Details Date Type Department Care Team (Late st Contact Info) Description 09/23/2023 8:10 AM EDT Laboratory Laboratory, [facility] 132 [facility] [place] [phone] [facility] 132 [place] [address] Elevated glucose; Hyperlipidemia, unspecified hyperlipidemia type Allergies [...] mRNA, LNP-s, No Pre serve, 2-Dose Series ([employer]) 11/27/2020,11/06/2020 COVID-19, LNP-s, No Preserve , Avinash-sucrose, [...] [facility], Endoscopy Room [facility] [address] [place] [phone] Jorge Mendoza MD [address] [place] [address] 10/14/2023 1:00 PM EDT - 10/14/2023 1:30 PM EDT Surgery ENDO [facility], Endoscopy Room [facility] [address] [place] [phone] Jorge Mendoza MD [address] [place] [address] COLONOSCOPY FLEXIBLE PROXIMAL DIAGNOSTIC 02/09/2024 8:30 AM EDT Office Visit Urology, [facility] [address] [place] [address] Daryl Pina MD [address] [place] [address] [place] [address] 02/21/2024 9:20 AM EST Office Visit Family Practice [facility] [address] [place] [address] Rangel Contreras CRNP [address] [place] [address] 09/28/2024 8:20 AM EDT Office Visit Family [facility] [address] [place] [address] Evgeny Blakely MD [address] [place] [address] Pending Results Name Type Priority Associated Diagnoses Date /Time BASIC METABOLIC PANEL Lab Routine Elevated glucose 09/23/2023 8:07 AM EDT Scheduled Procedures Name [...] colon documented in this encounter Care Teams Rotary Helper Relationship Specialty Start Date End Date Evgeny Blakely MD [address] [place] [address] PCP - General Family Medicine 08/14/14 documented as of this encounter
--- OUTSIDE RECORDS SUMMARY | 2024-02-16 13:35 | External Medical Summary ---
Author Name Unknown Address Unknown Organization [id number] [address] [place] [id number] Laboratory Report Ordering Provider Test Date Status NEIL GHOTRA 02/09/2024 09:37:05 Final Observation Date Value Abnormality Reference (Units ) Status BUN 02/09/2024 09:37:05 19 6-20 (mg/dL) Final Creatinine 02/09/2024 09:37:05 1.2 0.6-1.2 (mg/dL) Final Glomerular filtration rate/1.73 sq M.predicted [Volume Rate/Area] in Serum, Plasma or Blood by Creatinine-based formula (CKD-EPI) 02/09/2024 09:37:05 69 >=60 (mL/min) Final eGFR is calculated based on the CKD-EPI 2020 equation. Sodium 02/09/2024 09:37:05 140 135-146 (m mol/L) Final Potassium 02/09/2024 09:37:05 4.7 3.5-5.1 (m mol/L) Final Cl 02/09/2024 09:37:05 104 98-107 (mm ol/L) Final CO2 02/09/2024 09:37:05 27 22-32 (mmo l/L) Final Anion gap 02/09/2024 09:37:05 9 7-15 (mmol /L) Final Glucose 02/09/2024 09:37:05 120 70-120 (mg /dL) Final Calcium 02/09/2024 09:37:05 9.5 8.4-10.2 ( mg/dL) Final Performing Location [facility] [address] [place] [id number]
--- NOTE | 2024-02-16 14:04 | Critical Care Consultation ---
Date of Consultation February 16, 2024 Assessment & Plan (1) ST elevation (STEMI) myocardial infarction: Plan Impression: 68-year-old male with ST elevation myocardial infarction status post drug-eluting stent x 3 to the LAD. Recommendations: 1. Acute [place]: Status post DOMI. Continue dual antiplatelet therapy. Beta- joann and GUMARO inhibitor as tolerated. Await echocardiogram. 2. Outpatient cardiac rehab. 3. Disposition per primary service and cardiology. Will observe in the ICU overnight for any critical care issues but if he does well, critical care will sign off in a.m. History of Present Illness Attending Physician: Jose Cruz Hills MD History of Present Illness Asked by hospitalist to assist in evaluation management this patient status post acute myocardial infarction with emergent coronary angiography and stent placement. History is obtained from review the electronic medical record as well as discussion with bedside nursing. The patient is a 68-year-old male who presented to the emergency room this morning with shortness of breath and chest discomfort. The patient had ST elevations in the emergency room was taken emergently to the [facility]. Drug- eluting stent x 3 were placed to the LAD. The patient was brought to the ICU hemodynamically stable with a TR band in place. He has been initiated on dual antiplatelet agents. He is chest pain-free. His shortness of breath is resolved. Is hemodynamically stable and is on no oxygen. Allergies Allergy/AdvReac Type Severity Reaction Status Date / Time No Known Allergies Allergy Unverified 01/10/11 16:14 Home Medications Medication Instructions Recorded Confirmed Type finasteride 5 mg tablet 5 mg PO DAILY 02/16/24 02/16/24 History tamsulosin 0.4 mg capsule 0.4 mg PO DAILY 02/16/24 02/16/24 History Patient History Medical History (Updated 02/16/24 @ 12:24 by Arianne Mendez PA-C) BPH (benign prostatic hyperplasia) Surgical History (Updated 02/16/24 @ 12:24 by Arianne Mendez PA-C) History of appendectomy Family History (Updated 02/16/24 @ 12:24 by Arianne Mendez PA-C) Other Diabetes Social History Smoking Status: Unknown if ever smoked Hx Alcohol Use: No Hx Substance Use: No Preferred Language: Ethiopian Communication Ability: Effective Communication Tools: IPad Director Of Pharmacy Required: Yes Beliefs That Will Affect Care: None Current Living Situation: Spouse Other Information That Helps Us Care for You: No Feels Safe at Home: Yes Safety Concerns: Feels Safe At This Time Assistive Devices: None Review of Systems Review of Systems: Please refer to admission H&P Physical Exam Constitutional: WD/WN, vitals as above Neck: trachea midline, no thyromegaly Respiratory: normal respiratory effort, lungs clear to auscultation Cardiovascular: RRR, no murmur, no edema Gastrointestinal (Abdomen): normal bowel sounds, soft, nontender, no hepatosplenomegaly Musculoskeletal: Extremities: extremities normal to inspection Skin: no rashes, warm and dry Neurologic: Nonfocal exam Lymphatic: no cervical lymphadenopathy Results & Data Results & Data Vital Signs (Past 12 Hours) Vital Signs Temp Pulse Pulse Resp BP BP Pulse Ox 02/16/24 12:30 145/102 H 02/16/24 12:30 79 30 H 94 02/16/24 12:18 79 26 H 95 02/16/24 12:15 143/92 H 02/16/24 12:00 147/96 H 02/16/24 12:00 147/96 H 02/16/24 12:00 89 24 95 02/16/24 11:51 80 26 H 94 02/16/24 11:45 141/90 H 02/16/24 11:42 84 25 H 95 02/16/24 11:30 153/96 H 02/16/24 11:30 80 25 H 93 02/16/24 11:18 82 22 91 02/16/24 11:15 143/97 H 02/16/24 11:15 02/16/24 11:15 79 143/97 H 91 02/16/24 11:00 75 151/87 H 90 02/16/24 10:57 36.8 C 86 16 129/71 93 02/16/24 09:41 92 H 18 148/99 H 02/16/24 09:35 02/16/24 09:35 88 17 142/98 H 92 O2 Del Method O2 Del Method O2 Flow Rate 02/16/24 12:30 02/16/24 12:30 02/16/24 12:18 02/16/24 12:15 02/16/24 12:00 02/16/24 12:00 02/16/24 12:00 02/16/24 11:51 02/16/24 11:45 02/16/24 11:42 02/16/24 11:30 02/16/24 11:30 02/16/24 11:18 02/16/24 11:15 02/16/24 11:15 Room Air 02/16/24 11:15 02/16/24 11:00 02/16/24 10:57 Room Air 02/16/24 09:41 02/16/24 09:35 Nasal Cannula 4 02/16/24 09:35 Nasal Cannula 4 Critical Care Results & Data Vital Signs (Past 12 Hours) Vital Signs Temp Pulse Pulse Resp BP BP Pulse Ox 02/16/24 12:30 145/102 H 02/16/24 12:30 79 30 H 94 02/16/24 12:18 79 26 H 95 02/16/24 12:15 143/92 H 02/16/24 12:00 147/96 H 02/16/24 12:00 147/96 H 02/16/24 12:00 89 24 95 02/16/24 11:51 80 26 H 94 02/16/24 11:45 141/90 H 02/16/24 11:42 84 25 H 95 02/16/24 11:30 153/96 H 02/16/24 11:30 80 25 H 93 02/16/24 11:18 82 22 91 02/16/24 11:15 143/97 H 02/16/24 11:15 02/16/24 11:15 79 143/97 H 91 02/16/24 11:00 75 151/87 H 90 02/16/24 10:57 36.8 C 86 16 129/71 93 02/16/24 09:41 92 H 18 148/99 H 02/16/24 09:35 02/16/24 09:35 88 17 142/98 H 92 O2 Del Method O2 Del Method O2 Flow Rate 02/16/24 12:30 02/16/24 12:30 02/16/24 12:18 02/16/24 12:15 02/16/24 12:00 02/16/24 12:00 02/16/24 12:00 02/16/24 11:51 02/16/24 11:45 02/16/24 11:42 02/16/24 11:30 02/16/24 11:30 02/16/24 11:18 02/16/24 11:15 02/16/24 11:15 Room Air 02/16/24 11:15 02/16/24 11:00 02/16/24 10:57 Room Air 02/16/24 09:41 02/16/24 09:35 Nasal Cannula 4 02/16/24 09:35 Nasal Cannula 4 Lab & Micro Results (Past 24 Hours) RBC 4.41 M/uL (4.70-6.10) L 02/16/24 WBC 15.01 K/ul (4.8-10.8) H 02/16/24 Hgb 14.5 g/dl (14.0-18.0) 02/16/24 Hct 42.2 % (42.0-52.0) 02/16/24 MCV 95.7 fL (80.0-100.0) 02/16/24 MCH 32.9 pg (25.0-34.0) 02/16/24 MCHC 34.4 g/dL (32.0-36.0) 02/16/24 RDW Standard Deviation 49.5 fL (36.4-46.3) H 02/16/24 RDW Coefficient of Variation 13.9 % (11.5-14.5) 02/16/24 Plt Count 300 K/uL (130-400) 02/16/24 MPV 9.5 fL (9.4-12.4) 02/16/24 Neutrophils (%) (Auto) 86.3 % 02/16/24 Lymphocytes (%) (Auto) 7.3 % 02/16/24 Monocytes # (Auto) 0.77 K/uL (0.11-0.59) H 02/16/24 Eosinophils # (Auto) 0.06 K/uL (0.00-0.50) 02/16/24 Immature Granulocyte % (Auto) 0.5 % 02/16/24 Neutrophils # (Auto) 12.95 K/uL (1.40-6.50) H 02/16/24 Lymphocytes # (Auto) 1.10 K/uL (1.20-3.40) L 02/16/24 Monocytes # (Auto) 0.77 K/uL (0.11-0.59) H 02/16/24 Eosinophils # (Auto) 0.06 K/uL (0.00-0.50) 02/16/24 Basophils # (Auto) 0.06 K/uL (0.00-0.20) 02/16/24 Immature Granulocyte # (Auto) 0.07 K/uL (0.01-0.20) 4 Na 140 mmol/L (136-145) 02/16/24 K 3.9 mmol/L (3.5-5.1) 02/16/24 Cl 108 mmol/L (98-107) H 02/16/24 CO2 25 mmol/L (21-32) 02/16/24 Anion Gap 7 (3-11) 02/16/24 BUN 13 mg/dl (6-23) 02/16/24 Creatinine 1.03 mg/dl (0.6-1.4) 02/16/24 BUN/Creatinine Ratio 12.6 (10-20) 02/16/24 Glu 138 mg/dl (70-99(Fasting)) H 02/16/24 Ca 8.7 mg/dl (8.6-10.3) 02/16/24 Total Bilirubin 0.9 mg/dl (0.2-1.0) 02/16/24 AST 20 U/L (13-39) 02/16/24 ALT 14 U/L (7-52) 02/16/24 Alkaline Phosphatase 63 U/L (34-104) 02/16/24 TP 7.1 gm/dl (6.0-8.3) 02/16/24 Albumin 4.1 gm/dl (3.4-5.0) 02/16/24 Globulin 3.0 gm/dl (2.5-4.0) 02/16/24 Albumin/Globulin Ratio 1.4 (0.9-2) 02/16/24 Calcium Level 8.7 mg/dl (8.6-10.3) 02/16/24 09:41 I & O Totals 24 Hours 02/15/24 02/16/24 02/17/24 06:59 06:59 06:59 Output Total 500 / 500 Balance -500 / -500 Cumulative 02/16/24 09:19 thru 02/16/24 12:00 Output Total 500 Balance -500 RT Ventilator Mngmt (Last Documented) Ventilator Ordered Settings Respiratory Rate 30 02/16/24 12:30 Ventilator - PT Measurements Respiratory Rate 30 Coding Level of Care Code 15731 IN/OBS CONSULT LVL 3,45M Diagnoses ST elevation (STEMI) myocardial infarction I21.3
[2024-02-16] MEDS: FINASTERIDE 5 MG TAB PO SCH (14:09)
--- NOTE | 2024-02-16 14:36 | Electrocardiogram Report ---
Test Reason : Blood Pressure : */* mmHG Vent. Rate : 85 BPM Atrial Rate : 85 BPM P-R Int : 174 ms QRS Dur : 96 ms QT Int : 394 ms P-R-T Axes : 61 -16 30 degrees QTcB Int : 468 ms Normal sinus rhythm with sinus arrhythmia Confirmed by Camilo Murguia ([id number]) on 02/16/2024 2:36:26 PM Referred By: REFERRED SELF Confirmed By: Camilo Murguia
[2024-02-16] MEDS: METOPROLOL TARTRATE 25 MG TAB PO SCH (20:25)
[2024-02-16] MEDS: ACETAMINOPHEN 325 MG TAB PO PRN (20:41)
--- NOTE | 2024-02-17 07:21 | Critical Care Progress Note ---
Date of Service February 17, 2024 Assessment & Plan (1) ST elevation (STEMI) myocardial infarction: Plan Impression: 68-year-old male with ST elevation myocardial infarction status post drug-eluting stent x 3 to the LAD. He is complaining of some chest pain this morning Recommendations: 1. Acute [place]: Status post DOMI. Continue dual antiplatelet therapy. On metoprolol. Add GUMARO inhibitor. Echo pending this morning. Troponin peaked. 2. Outpatient cardiac rehab. 3. Chest pain: Will conduct interview with student accounts manager to better clarify the patient's complaint of chest discomfort. EKG this morning. Patient's critical care issues appear to have resolved. Critical care will sign off. Feel free to contact us with questions or concerns Admission and Anticipated Discharge Date Admission Date: February 16, 2024 Subjective Patient seen and examined. EMR reviewed. Discussed on multidisciplinary rounds. Some substernal chest pain this morning. EKG Review of Systems 2 Review of Systems: All systems reviewed & are unremarkable except as noted in Subjective Physical Exam 2 Constitutional: WD/WN, vitals as above Neck: trachea midline, no thyromegaly Respiratory: normal respiratory effort, lungs clear to auscultation Cardiovascular: RRR, no murmur, no edema Gastrointestinal (Abdomen): normal bowel sounds, soft, nontender, no hepatosplenomegaly Musculoskeletal: Extremities: extremities normal to inspection Skin: no rashes, warm and dry Lymphatic: no cervical lymphadenopathy Results & Data Results & Data Vital Signs (Past 12 Hours) Vital Signs Temp Pulse Pulse Resp BP BP Pulse Ox 02/17/24 06:00 82 23 143/95 H 94 02/17/24 05:00 85 20 146/95 H 95 02/17/24 04:00 37.3 C 93 H 20 144/95 H 94 02/17/24 03:00 88 24 139/95 92 02/17/24 02:00 83 21 140/96 94 02/17/24 01:09 76 21 136/95 93 02/17/24 00:00 37.4 C 82 24 143/95 H 92 02/16/24 23:00 81 17 134/92 93 02/16/24 22:00 79 23 137/87 92 02/16/24 21:00 84 24 142/93 H 92 02/16/24 20:00 37.1 C 101 H 24 158/103 H 95 O2 Del Method 02/17/24 06:00 Room Air 02/17/24 05:00 Room Air 02/17/24 04:00 Room Air 02/17/24 03:00 Room Air 02/17/24 02:00 Room Air 02/17/24 01:09 Room Air 02/17/24 00:00 Room Air 02/16/24 23:00 Room Air 02/16/24 22:00 Room Air 02/16/24 21:00 Room Air 02/16/24 20:00 Room Air Laboratory Results 02/16/24 11:35 02/16/24 09:41 Diagnostic Findings Echo pending Coding Level of Care Code 06211 SUB INP/OBS CARE 3/50MIN Diagnoses ST elevation (STEMI) myocardial infarction I21.3
[2024-02-17] MEDS: NITROGLYCERIN SL 0.4 MG/TAB TAB SL STA (07:44)
[2024-02-17 07:56] LABS: Chol HDL Ratio 4.2 (0-5)
[2024-02-17] MEDS: TICAGRELOR 90 MG TAB PO SCH (07:59)
[2024-02-17] MEDS: TAMSULOSIN HCL 0.4 MG CAP PO SCH (08:04)
[2024-02-17] MEDS: ATORVASTATIN 40 MG TAB PO SCH (08:05)
[2024-02-17] MEDS: ASPIRIN 81 MG ECTAB PO SCH (08:05)
[2024-02-17 08:13] LABS: Troponin I High Sensitivity 17358.6 pg/ml (0-20)
[2024-02-17] MEDS: lisinopril 5 MG TAB PO SCH (09:21)
[2024-02-17 12:07] LABS: Basophils # (auto) 0.06 K/uL (0.00-0.20); Basophils % (auto) 0.4 %; Eosinophils # (auto) 0.08 K/uL (0.00-0.50); Eosinophils % (auto) 0.6 %; Hematocrit (blood only) 45.9 % (42.0-52.0); Immature Granulocytes # (auto) 0.03 K/uL (0.01-0.20); Immature Granulocytes % (auto) 0.2 %; Lymphocytes # (auto) 2.01 K/uL (1.20-3.40); Lymphocytes % (auto) 14.3 %; Mean Corpuscular Hemoglobin 32.9 pg (25.0-34.0); Mean Corpuscular Hgb Conc 34.9 g/dL (32.0-36.0); Mean Corpuscular Volume 94.3 fL (80.0-100.0); Mean Platelet Volume 9.2 fL (9.4-12.4); Monocytes # (auto) 1.63 K/uL (0.11-0.59); Monocytes % (auto) 11.6 %; Neutrophils # (auto) 10.25 K/uL (1.40-6.50); Neutrophils % (auto) 72.9 %; Platelet Count 301 K/uL (130-400); RDW Coefficient of Variation 13.8 % (11.5-14.5); RDW Standard Deviation 47.8 fL (36.4-46.3); Red Blood Count 4.87 M/uL (4.70-6.10); White Blood Count 14.06 K/ul (4.8-10.8)
--- NOTE | 2024-02-17 14:15 | Hospitalist Progress Note ---
Date of Service February 17, 2024 Assessment & Plan (1) ST elevation (STEMI) myocardial infarction: (2) CAD (coronary artery disease): (3) Dyslipidemia: Plan Patient presented to the ER with a STEMI. Patient went to [facility] and had LAD stented. Patient still requires monitoring, specialty consultation and titration of medications. Requires hospital level care. Post procedure angina this morning. Resolved with nitroglycerin. Titrate beta-joann Continue dual antiplatelet therapy status post stents Echocardiogram pending Continue statin Communication with donor center technician and cardiology, patient may transfer to PCU Attempted to call , no answer Admission and Anticipated Discharge Date Admission Date: February 16, 2024 Subjective Patient with chest pain this morning, resolved with nitroglycerin. Denies any recurrent chest pain since then. Physical Exam Physical Exam: Constitutional: Alert, nontoxic, no acute distress HEENT: Mucous membranes moist. Lungs: Clear to auscultation, decreased, no wheezes rales or rhonchi CV: S1-S2, regular, tachycardic Abdomen: Soft, nontender, nondistended Extremities: No significant edema, right wrist site of cardiac cath no significant hematoma or redness Neuro: No focal deficits Psych: Cooperative, normal mood Results & Data Results & Data Vital Signs (Past 12 Hours) Vital Signs Temp Pulse Pulse Resp BP BP Pulse Ox 02/17/24 07:50 121/86 02/17/24 07:50 121/86 02/17/24 07:50 121/86 02/17/24 07:49 37.2 C 90 121/86 96 02/17/24 07:48 95 H 21 95 02/17/24 07:00 135/91 02/17/24 07:00 135/91 02/17/24 07:00 135/91 02/17/24 07:00 135/91 02/17/24 07:00 95 H 19 93 02/17/24 06:00 82 23 143/95 H 94 02/17/24 05:00 85 20 146/95 H 95 02/17/24 04:00 37.3 C 93 H 20 144/95 H 94 02/17/24 03:00 88 24 139/95 92 O2 Del Method O2 Flow Rate 02/17/24 07:50 02/17/24 07:50 02/17/24 07:50 02/17/24 07:49 Nasal Cannula 2 02/17/24 07:48 02/17/24 07:00 02/17/24 07:00 02/17/24 07:00 02/17/24 07:00 02/17/24 07:00 02/17/24 06:00 Room Air 02/17/24 05:00 Room Air 02/17/24 04:00 Room Air 02/17/24 03:00 Room Air Diagnostic Findings Reviewed imaging, laboratory and diagnostic studies. Pertinent findings as below. Reviewed cardiac cath report, LAD stent x 3, significant RCA disease Troponins reviewed WBCs 14.0 Hemoglobin 16.0 Hemoglobin A1c 5.7%
--- NOTE | 2024-02-17 14:40 | Post Anesthesia Assessment ---
Date of Service February 16, 2024 Post Sedation Assessment Vital Signs Temp Pulse Pulse Resp BP BP Pulse Ox 02/17/24 07:50 121/86 02/17/24 07:50 121/86 02/17/24 07:50 121/86 02/17/24 07:49 37.2 C 90 121/86 96 02/17/24 07:48 95 H 21 95 02/17/24 07:00 135/91 02/17/24 07:00 135/91 02/17/24 07:00 135/91 02/17/24 07:00 135/91 02/17/24 07:00 95 H 19 93 02/17/24 06:00 82 23 143/95 H 94 02/17/24 05:00 85 20 146/95 H 95 02/17/24 04:00 37.3 C 93 H 20 144/95 H 94 02/17/24 03:00 88 24 139/95 92 02/17/24 02:00 83 21 140/96 94 02/17/24 01:09 76 21 136/95 93 02/17/24 00:00 37.4 C 82 24 143/95 H 92 02/16/24 23:00 81 17 134/92 93 02/16/24 22:00 79 23 137/87 92 02/16/24 21:00 84 24 142/93 H 92 02/16/24 20:00 37.1 C 101 H 24 158/103 H 95 02/16/24 19:00 83 15 162/104 H 93 02/16/24 18:06 94 H 25 H 94 02/16/24 18:00 152/97 H 02/16/24 17:57 80 27 H 94 02/16/24 17:03 86 21 94 02/16/24 17:00 156/96 H 02/16/24 17:00 156/96 H 02/16/24 17:00 156/96 H 02/16/24 16:57 92 H 24 95 02/16/24 16:00 78 30 H 95 02/16/24 15:09 72 23 95 02/16/24 15:00 153/97 H 02/16/24 14:57 82 24 95 O2 Del Method O2 Flow Rate 02/17/24 07:50 02/17/24 07:50 02/17/24 07:50 02/17/24 07:49 Nasal Cannula 2 02/17/24 07:48 02/17/24 07:00 02/17/24 07:00 02/17/24 07:00 02/17/24 07:00 02/17/24 07:00 02/17/24 06:00 Room Air 02/17/24 05:00 Room Air 02/17/24 04:00 Room Air 02/17/24 03:00 Room Air 02/17/24 02:00 Room Air 02/17/24 01:09 Room Air 02/17/24 00:00 Room Air 02/16/24 23:00 Room Air 02/16/24 22:00 Room Air 02/16/24 21:00 Room Air 02/16/24 20:00 Room Air 02/16/24 19:00 Room Air 02/16/24 18:06 02/16/24 18:00 02/16/24 17:57 02/16/24 17:03 02/16/24 17:00 02/16/24 17:00 02/16/24 17:00 02/16/24 16:57 02/16/24 16:00 02/16/24 15:09 02/16/24 15:00 02/16/24 14:57 Recovery Score Activity: Moves 4 extremities Respiration: Deep Breath/Cough Circulation: +/-20% PreAnes Value Consciousness: Fully Awake Oxygen Saturation: > 92% On Room Air Discharge Sedation Level of Care: Fast Track Phase II Post Sedation Plan On clinical assessment, the patient appears to have tolerated the sedation without complications. Patient is recovering as anticipated. Patient will continue to be monitored by nursing and may be discharged when sedation discharge criteria are met per below protocol. Upon Completions of procedure up to 15 minutes continue every 5 minute vital signs and the P.A.R. score; then discharge to a Phase I or Fast Track to Phase II per the following guidelines: * Discharge Patient to appropriate Phase II area if PAR is 8 or greater or ret urn to pre- procedure baseline. The post - procedure orders will be as directed. * If PAR score is less than 8 or not return to pre-procedure baseline then patient will follow Phase I monitoring till PAR is reached for Phase II. The Phase I may be done in procedure room or may call to secure a Phase I area. * If naloxone or flumazenil are used for reversal, hold in Phase I for continued monitoring from when last reversal dose was given for a minimum of 60 minutes or longer pending the nurse and/or physician discretion of patient condition before discharge to Phase II. Please call the Sedation Physician to re-evaluate and complete post-note for discharge to Phase II area. Do NOT discharge from procedure sedation or Phase 1 until post- sedation evaluation note is complete by procedure /sedation MD Sedation Discharge Instructions to be given to the patient at discharge to home.
--- NOTE | 2024-02-17 14:44 | Cardiac Catheterization ---
ACC Data: Traffic Rate Analyst Cardiac Status Clinical evaluation leading to the procedure CAD Presenation: STEMI Anginal Classification: CCS IV Heart Failure: No Cardiogenic Shock within 24 Hours: No Cardiac Arrest within 24 Hours: No Imaging Studies Past 6 Months: No Stress Studies Past 6 Months: No STEMI OR Non-STEMI Symptom Onset Date: 02/16/24 Symptom Onset Time: 08:00 Thrombolytics: No Coronary Anatomy Dominant: Right Left Main (% Stenosis): Normal LAD (% Stenosis): Proximal (99%) and Mid (70%) D1 (% Stenosis): Normal Circumflex (% Stenosis): Normal OM1 (% Stenosis): Normal OM2 (% Stenosis): Normal L PL1 (% Stenosis): Normal RCA (% Stenosis): Proximal (40 to 50%) R PDA (% Stenosis): Normal R PL1 (% Stenosis): Normal Diagnostic Physicians Name: Benny Kaminski MD, PhD Closure Device Percutaneous Entry Location: Radial Closure Device: Radial Band Recommendations: Medical Therapy and/or Counseling and PCI without planned CABG PCI Indication: PCI for STEMI - Stable First Noted: First EKG Lesion Segment Name: Proximal to mid LAD Culprit Artery: Yes Stenosis Prior to Rx (%): 99% Chronic Total Occlusion: No Pre-Procedure BILL Flow: 1 Previously Treated Lesion: No Lesion Complexity: Non-High/Non-C Lesion Length (mm): 34 Thrombus Present: Yes Bifurcation Lesion: Yes Guidewire Across Lesion: Yes Intraprocedure Events Significant Disection: No Perforation: No Cardiac Cath Procedure Full Procedure Date February 16, 2024 Pre-Procedure Diagnosis Pre-Procedure Diagnosis: STEMI AUC Score AUC Score: 09 Post-Procedure Diagnosis Post-Procedure Diagnosis: Severe CAD and Successful PCI Procedure(s) Performed Procedure(s) Performed: Coronary Angiography and Drug Eluting Stent Dean Of Student Services Benny Kaminski MD, PhD Estimated Blood Loss Estimated Blood Loss: 5 cc Medication(s) Medication(s): Fentanyl, Heparin, Lidocaine 1%, Nicardipine, Nitroglycerin and Versed Summary of Findings Brief description: Patient was brought emergently to the cardiac catheterization suite where he was shaved and prepped in a sterile fashion. He had received IV heparin, aspirin, and Brilinta 180 mg p.o. in the emergency department. He was sedated using IV Versed and fentanyl. Soft tissues of the right wrist were anesthetized using 2 mL of 1% Xylocaine. The right radial artery was accessed with a modified Seldinger technique and a 6 [place]an radial artery glide sheath was placed. Patient was provided anticoagulation with IV heparin and antispasmodics including nicardipine and nitroglycerin. All catheters were advanced and e xchanged over a 0.035 J-tip wire. Left coronary angiography was performed in orthogonal views with a 6 [place] EBU 3.5 guide catheter. We moved immediately to PCI. ACT was checked and additional heparin was provided as needed to maintain therapeutic anticoagulation. BMW reversal guidewire was advanced through the guide catheter and eventually positioned distally in the LAD. LAD lesion was predilated with a 2.5 x 12 mm trek balloon at 18 alexey. Regional Facilities Manager angiography performed and a second lesion was noted just distal to the first. This was predilated with the same balloon at 14 alexey. Balloon was removed. A 2.75 x 28 mm sarah beth point drug-eluting stent was advanced and positioned across the more distal lesion and the proximal lesion as well. This was deployed at 12 alexey to fit the vessel size at the distal lesion. Stent balloon was then removed. Regional Facilities Manager angiography was performed. A 3.0 x 8 mm sarah beth point stent was then advanced and positioned with its distal edge just within the proximal edge of the first stent. This was then deployed at 14 alexey. The balloon was deflated and positioned across the overlap segment and early portion of the first stent where it was then inflated to 12 alexey. Yared nt balloon was removed and scientific photographer angiography was performed. The proximal portion of the stent was then postdilated with a 3.0 x 9 mm NC sprinter at 18 alexey. The balloon was then deflated and advanced again to the overlap segment where it was inflated to 10 alexey. Regional Facilities Manager angiography was performed after balloon removal. Angiography demonstrated that the stented segment covered the lesion but there was a significant stepdown from the proximal LAD just before the stent despite the postdilatation. It was decided to implant a third stent of larger caliber to fit the proximal unstented segment and extend into the proximal portion of the second stent so that we could safely properly taper the entire stented segment in a safe manner. A 3.5 x 12 mm sarah beth point stent was therefore advanced and positioned with its distal edge just within the proximal edge of the prior 3.0 mm diameter stent. It therefore covered the full disease segment and some of the proximal on disease segment. It was deployed at 12 alexey. Stent balloon was removed and scientific photographer angiography performed. Final postdilatation of the proximal stent was performed with a 3.5 x 8 mm NC Piero balloon at 17 alexey. The balloon was then deflated and removed. Final angiography was performed after the BMW guidewire was removed. Guide catheter was exchanged over the wire for a 5 [place]an JR4 diagnostic catheter so we could complete the diagnostic angiography. Right coronary angiography was performed in orthogonal views with a 5 [place] JR4 diagnostic catheter. Diagnostic catheter was removed. The radial artery sheath was removed. Hemostasis was obtained using the TR band. Patient was hemodynamically stable and asymptomatic. He was therefore transported to the ICU for further workup and management. This ended the case. Coronary angiography findings: LMT-this is large and bifurcates into the LAD and circumflex. There are mild luminal irregularities. VJB-ihucc-fqxjcdu and transapical. Proximal segment with mild luminal irregularities then at the level of the first diagonal there is a 99% subtotally occluded acute lesion with thrombus. There is a large septal branch at this level and a large branching diagonal which has no significant disease. The mid segment then has a focal 70% stenosis. Distally there are mild luminal irregularities. There is BILL I flow in the vessel beyond the 99% lesion. This is culprit for acute anterolateral ST elevation WA. [id number] and nondominant. Travels in AV groove and gives a high arising OM1 followed by an atrial branch. Proximal segment and mid segment of the AV groove circumflex have mild luminal irregularities. Circumflex then gives a large caliber branching OM 2 which has no disease. The distal AV groove after this tapers becoming medium and then small as it terminates in a small posterolateral branch. KGA-ykorn-dflpazf and dominant. Proximal focal 40 to 50% narrowing. The remainder of the RCA has no more than mild luminal irregularities. It branches into a large PDA and a large posterolateral which has several branches. These vessels have no angiographically significant disease. PCI of LAD with 3 overlapping drug-eluting stents BILL-3 flow post PCI No evidence of dissection or perforation post PCI 0% residual stenosis post PCI Summary: 1. Severe proximal to mid LAD stenosis which is the culprit for acute WA. Mild to moderate stenosis of the proximal RCA which is not a culprit lesion. 2. Successful PCI with implantation of 3 overlapped drug-eluting stents to the proximal and mid LAD for acute WA. 3. Dual antiplatelet therapy with aspirin and Brilinta for 1 to 2 years. 4. Guideline directed medical therapy for secondary prevention of coronary artery disease. This will include low-dose aspirin, high intensity statin therapy, beta-joann, plus or minus GUMARO inhibitor/ARB. Hemodynamics Rest Ao:: 142/91 mmHg Final Ao: 122/87 mmHg LV: Not performed Recommendations Recommendations: Medical Therapy and/or Counseling and PCI without planned CABG Radiation Exposure (mGy) 1572 mGy, fluoroscopy time 9.5 minutes Contrast (mls) 145 Anesthesia 1 mg Versed, 25 mcg fentanyl IV. Start 0955, end 1024 Procedural Complication(s) None Disposition ICU I attest to the content of the Intraoperative Record and any orders documented therein. Any exceptions are noted below. [facility] Card Cath Procedure Codes Cardiac Catheterization Procedure 1: Cardiovascular Cath Procedures: 08974 Coronaries Moderate Sedation Procedure 1: Sedation/Anesthesia: 84338 Mod Sedation by the same physician;Init15 Min Child Age 5 & Up (Initial 15 minutes, start time 0955) Procedure 2: Sedation/Anesthesia: 79368 Mod Sedation by the same physician; Ea [id number] Minutes (Additional 14 minutes, end time 1024) Stenting Procedure 1: Cardiovascular Stent Procedures: 27017 Perc transluminal revascularization of acute sub/total occl, aMI (LAD) PG Care Time/CCT Total # of Minutes Spent Total Time Spent with Patient: Total time spent is greater than 50% in coordination of care (as documented) at patient's floor/unit and/or counseling patient:
--- NOTE | 2024-02-17 15:05 | Electrocardiogram Report ---
Test Reason : Blood Pressure : */* mmHG Vent. Rate : 91 BPM Atrial Rate : 91 BPM P-R Int : 168 ms QRS Dur : 92 ms QT Int : 388 ms P-R-T Axes : 65 -16 62 degrees QTcB Int : 477 ms Poor data quality, interpretation may be adversely affected Normal sinus rhythm Anteroseptal infarct (cited on or before 16-Feb-2024) Abnormal ECG When compared with ECG of 16-Feb-2024 10:46, T wave inversion now evident in Anterior leads Confirmed by Camilo Murguia ([id number]) on 02/17/2024 3:05:00 PM Referred By: REFERRED SELF Confirmed By: Camilo Murguia
--- NOTE | 2024-02-17 15:23 | Cardiology Consultation ---
Date of Consultation February 17, 2024 Assessment & Plan (1) ST elevation (STEMI) myocardial infarction: Successful PCI with implantation of 3 overlapped drug-eluting stents to the proximal-mid LAD. He will remain on dual antiplatelet therapy with aspirin and Brilinta to complete 1 to 2 years therapy. We are ordering an echocardiogram to evaluate EF and valvular function. He will remain in the ICU for 24 hours per standard of care. Then he will be appropriate for transfer to the stepdown unit assuming he has no complications of his NE. (2) CAD (coronary artery disease): Two-vessel coronary artery disease with the LAD being the culprit for acute NE. Mild to moderate nonocclusive residual disease in the RCA as described. Initiating guideline directed medical therapy for secondary prevention of coronary disease including low-dose aspirin, high intensity statin therapy, beta-joann, plus or minus GUMARO inhibitor/ARB as tolerated. Strongly encouraged cardiac rehab after discharge. (3) Dyslipidemia: High risk. High intensity statin therapy is initiated. Untreated lipid panel will be obtained. History of Present Illness Reason for Consultation: Acute ST elevation NE Attending Physician: Cong Deluna DO History of Present Illness 68-year-old [place] Islander male who developed sudden onset chest discomfort, diaphoresis, and shortness of breath while at work. He speaks only a little bit of Bangladeshi. The initial evaluation was performed with the assistance of the circus rider service. Patient denied preceding anginal symptoms until this morning. He was feeling better after receiving aspirin and nitroglycerin. Initial EKG with acute anterolateral ST elevation NE findings. In the emergency department he received not only the aspirin and nitroglycerin but also Brilinta 180 mg and 5000 unit bolus of heparin. Patient denied any syncope, near syncope, orthopnea, PND, racing heartbeat, palpitations, or edema. We quickly proposed cardiac catheterization and obtained consent. We then proceeded emergently to the cardiac catheterization suite where he underwent cardiac catheterization and PCI of the LAD with implantation of 3 overlapped drug-eluting stents. Good angiographic results and complete resolution of the symptoms. He was subsequently admitted to the ICU for further workup and management. At the time of the emergency there was no family available. Allergies Allergy/AdvReac Type Severity Reaction Status Date / Time No Known Allergies Allergy Unverified 01/10/11 16:14 Home Medications Medication Instructions Recorded Confirmed Type finasteride 5 mg tablet 5 mg PO DAILY 02/16/24 02/16/24 History tamsulosin 0.4 mg capsule 0.4 mg PO DAILY 02/16/24 02/16/24 History Patient History Medical History BPH (benign prostatic hyperplasia) Surgical History History of appendectomy Family History Other Diabetes Social History Smoking Status: Unknown if ever smoked Hx Alcohol Use: No Hx Substance Use: No Preferred Language: [place] Islander Communication Ability: Effective Communication Tools: [employer] Supervisor Required: Yes Beliefs That Will Affect Care: None Current Living Situation: Spouse Feels Safe at Home: Yes Assistive Devices: None Review of Systems Review of Systems: Negative except as per HPI Physical Exam Constitutional: WD/WN, vitals as above Eyes: Extraocular muscles intact. Sclera are anicteric. ENMT: Oral mucosa is pink and dry. Neck: No JVD Respiratory: Clear to auscultation bilaterally. No wheezing, rhonchi, or rales. Cardiovascular: Regular rate and rhythm. S4 gallop. I do not appreciate any murmurs in the emergency department. No edema. 2+ pulses. Musculoskeletal: no cyanosis or clubbing, extremities motor strength 5/5 Neurologic: As best as can be determined the cognition is intact. Speech is fluent. He does not appear to have any focal motor deficits and was cooperative in moving from the stretcher to the Hooker Operator table. Psychiatric: A+Ox3, euthymic affect Results & Data Vital Signs (Past 12 Hours) Vital Signs Temp Pulse Pulse Resp BP BP Pulse Ox 02/17/24 07:50 121/86 02/17/24 07:50 121/86 02/17/24 07:50 121/86 02/17/24 07:49 37.2 C 90 121/86 96 02/17/24 07:48 95 H 21 95 02/17/24 07:00 135/91 02/17/24 07:00 135/91 02/17/24 07:00 135/91 02/17/24 07:00 135/91 02/17/24 07:00 95 H 19 93 02/17/24 06:00 82 23 143/95 H 94 02/17/24 05:00 85 20 146/95 H 95 02/17/24 04:00 37.3 C 93 H 20 144/95 H 94 O2 Del Method O2 Flow Rate 02/17/24 07:50 02/17/24 07:50 02/17/24 07:50 02/17/24 07:49 Nasal Cannula 2 02/17/24 07:48 02/17/24 07:00 02/17/24 07:00 02/17/24 07:00 02/17/24 07:00 02/17/24 07:00 02/17/24 06:00 Room Air 02/17/24 05:00 Room Air 02/17/24 04:00 Room Air PG Care Time/CCT Total # of Minutes Spent Total Time Spent with Patient: Total time spent is greater than 50% in coordination of care (as documented) at patient's floor/unit and/or counseling patient: Critical Care Time: Yes I spent a total of 45 minutes critical care time in the initial evaluation of the patient, discussion with the emergency department team, use of the circus rider, physical exam, review of available records, discussion with the Hooker Operator team, formulation and implementation of a plan of care and all associated documentation. This time is exclusive of the time spent on the procedure. Coding Level of Care Code 15773 CRITICAL CARE 1ST 30-74M Diagnoses ST elevation (STEMI) myocardial infarction I21.3 CAD (coronary artery disease) I25.10 Dyslipidemia E78.5 Additional Codes Critical Care Time - Critical Care Time: Yes ([id number])
--- NOTE | 2024-02-17 17:13 | XCELERA ---
[id number]
--- NOTE | 2024-02-17 17:35 | Cardiology Progress Note ---
Date of Service February 17, 2024 Assessment & Plan (1) CAD (coronary artery disease): Plan: Acute WA secondary occlusion of the proximal and mid LAD. Mild residual disease in the RCA. Echocardiographic findings consistent with recent LAD territory WA. Patient's heart rate is above target, his blood pressure is at target. He will continue with guideline directed medical therapy for secondary prevention including aspirin 81 mg daily, a atorvastatin 40 mg daily, lisinopril 5 mg daily, and metoprolol to tartrate which was increased to 50 mg p.o. twice daily. (2) ST elevation (STEMI) myocardial infarction: Plan: Status post successful implantation of 3 overlapped drug-eluting stents to the proximal and mid LAD. Good angiographic results. Cardiac troponin peaked at 22,245. Patient will remain on dual antiplatelet therapy with aspirin 81 mg daily and ticagrelor 90 mg p.o. twice daily to complete 1 to 2 years therapy. Strongly encouraged participation in cardiac rehab, follow a cardiac prudent diet, abstinence from tobacco, and compliance with medical regimen. (3) Dyslipidemia: Plan: Patient is high risk. High intensity statin therapy ongoing. Currently on a atorvastatin 40 mg daily. Untreated lipids include triglycerides 148 mg/dL, total cholesterol 241 mg/dL, LDL 154 mg/dL and HDL 57 mg/dL. Target LDL will be 77 mg/dL. (4) Benign essential hypertension: Plan: Blood pressure is at target on metoprolol 50 mg p.o. twice daily and lisinopril 5 mg daily. No changes at this time. (5) Sinus tachycardia: Plan: Unclear etiology. Exclude infection, bleed, and alcohol withdrawal. Continue metoprolol to tartrate at its current dose. (6) Ischemic cardiomyopathy: Plan: Mildly reduced EF. No evidence of volume overload. Anticipate significant improvement in his EF with revascularization, compliance with suggested medications, and time for healing. No changes for now. We will reevaluate his EF in 3 months. Admission and Anticipated Discharge Date Admission Date: February 16, 2024 Subjective Patient did well overnight. He had 1 brief episode of chest pain earlier this morning which was successfully treated with nitroglycerin. EKG performed at that time did not show new ischemic changes. Patient underwent echocardiogram as recommended. This demonstrated mildly reduced EF and wall motion abnormalities consistent with recent LAD territory WA. In addition, he had mild mitral regurgitation and mild tricuspid regurgitation with associated mild pulmonary hypertension. Patient denies any dyspnea. His family is present in the room with the younger male being able to speak Pakistani quite well. He conveys thoughts back and forth between the patient and myself. Patient has mild tachycardia on my evaluation. He denies noticing any tachycardia. Denies shortness of breath or pain at the access site. No other complaints or concerns at this time. Review of Systems Review of Systems: Negative except as per HPI Physical Exam Constitutional: WD/WN, vitals as above Eyes: Extraocular muscles intact. Sclera are anicteric. ENMT: Oral mucosa is pink moist and intact Neck: No JVD Respiratory: Clear to auscultation bilaterally. No wheezing, rhonchi, or rales. Cardiovascular: Regular rate and rhythm. S4 gallop. Soft grade 1/6 systolic murmur. No edema. Musculoskeletal: no cyanosis or clubbing, extremities motor strength 5/5 (Right radial access clean dry and intact. Good distal perfusion) Neurologic: Cognition is intact. Speech is fluent. No focal motor deficits. No tremor. Psychiatric: A+Ox3, euthymic affect Results & Data Vital Signs (Past 12 Hours) Vital Signs Temp Pulse Pulse Resp BP BP Pulse Ox 02/17/24 16:35 36.7 C 101 H 18 93 02/17/24 15:53 108 H 02/17/24 07:50 121/86 02/17/24 07:50 121/86 02/17/24 07:50 121/86 02/17/24 07:49 37.2 C 90 121/86 96 02/17/24 07:48 95 H 21 95 02/17/24 07:00 135/91 02/17/24 07:00 135/91 02/17/24 07:00 135/91 02/17/24 07:00 135/91 02/17/24 07:00 95 H 19 93 02/17/24 06:00 82 23 143/95 H 94 O2 Del Method O2 Flow Rate 02/17/24 16:35 Room Air 02/17/24 15:53 02/17/24 07:50 02/17/24 07:50 02/17/24 07:50 02/17/24 07:49 Nasal Cannula 2 02/17/24 07:48 02/17/24 07:00 02/17/24 07:00 02/17/24 07:00 02/17/24 07:00 02/17/24 07:00 02/17/24 06:00 Room Air PG Care Time/CCT Total # of Minutes Spent Total Time Spent with Patient: Total time spent is greater than 50% in coordination of care (as documented) at patient's floor/unit and/or counseling patient: Coding Level of Care Code 25613 SUB INP/OBS CARE 2/35MIN Diagnoses CAD (coronary artery disease) I25.10 ST elevation (STEMI) myocardial infarction I21.3 Dyslipidemia E78.5 Benign essential hypertension I10 Sinus tachycardia R00.0 Ischemic cardiomyopathy I25.5
[2024-02-17] MEDS: METOPROLOL TARTRATE 50 MG TAB PO SCH (20:34)
[2024-02-18 07:03] LABS: BUN Creatinine Ratio 13.5 (10-20); Calcium 8.8 mg/dl (8.6-10.3); Creatinine Clr Calc Pharmacy 66.3 ml/min; Potassium 3.6 mmol/L (3.5-5.1)
[2024-02-18] MEDS: POTASSIUM CHLORIDE CRTAB 20 MEQ TABCR PO ONE (08:36)
[2024-02-18] MEDS: lisinopril 10 MG TAB PO SCH (08:36)
[2024-02-18] MEDS: METOPROLOL SUCC 50MG EXT REL TAB PO SCH (08:37)
[2024-02-18] MEDS: EMPAGLIFLOZIN 10 MG TAB PO SCH (08:37)
[2024-02-18] MEDS: SPIRONOLACTONE 12.5 MG TAB PO SCH (08:38)
--- NOTE | 2024-02-18 11:34 | Discharge Summary ---
Discharge Summary Date of Service February 18, 2024 Principal Dx & Hospital Course #1 = Principal Diagnosis (1) ST elevation (STEMI) myocardial infarction: (2) CAD (coronary artery disease): (3) Dyslipidemia: (4) Acute heart failure with mildly reduced ejection fraction (HFmrEF, 41-49%): (5) Ischemic cardiomyopathy: (6) Benign essential hypertension: (7) Sinus tachycardia: Plan Patient presented to the emergency room with chest pain and shortness of breath. In the emergency room is a heart alert with elevated troponins and went immediately to the cardiac catheter lab. Patient was admitted to the hospital after cardiac cath. He received 3 stents in the LAD. He was started on dual antiplatelet therapy with Brilinta and aspirin as well as beta-joann. Echocardiogram showed mildly reduced ejection fraction consistent with his LAD ST elevated myocardial infarction. His post cath course was briefly complicated by a short episode of chest pain. This was resolved with 1 dose of nitroglycerin. Since then the patient has had no recurrent chest pains. His activity was increased. He was transition from metoprolol to tartrate to metoprolol succinate for his decreased ejection fraction. GUMARO inhibitor was added to his medical regimen and as well as Aldactone for goal-directed medical therapy. On the morning of discharge his vital signs significantly improved and stabilized. He was chest pain-free. I coordinated his outpatient medications for him. He will follow-up with cardiology in approximately 2 to 4 weeks. He will increase his activity as directed postcardiac cath. And follow-up with his other their outpatient providers Notes For Next Care Provider Patient may need additional titration of his ongoing medications. Monitor glucose intermittently, initial hemoglobin A1c indicates prediabetes. Medication Changes From Visit Brilinta, aspirin, metoprolol, lisinopril, Aldactone all initiated in the setting of STEMI. Admission HPI Per Admitting Provider This is a 68 yo M with a PMH of BPH, psoriasis who presented to ED this morning as a heart alert. Patient reports going for a walk this morning and becoming acutely SOB with chest discomfort. Symptoms did not resolve with rest. + associated nausea, no vomiting. Patient called EMS and EKG in the field demonstrated ST elevation in V2 and V3 concerning for STEMI. Patient primary language is Czech and diplomatic interpreter was used in ED to explain condition and need for cardiac catheterization. Patient is seen in 101-1 post cardiac catheterization by Dr. Kaminski. S/p DOMI x 3 to LAD per RN report (awaiting cath report). Family at bedside. Feeling much better now. No more SOB, has some mild chest wall discomfort. No F/C, lightheadedness, palpitations, N/V, abd pain, dysuria, diarrhea or constipation. No history of known cardiac disease. No family history of heart disease. Non- smoker. Does not drink alcohol. Denies known hx of DM or HLD. Admission Exam Per Admitting Provider See H&P Discharge Exam Constitutional: Alert, no acute distress HEENT: Mucous membranes moist. Lungs: Clear to auscultation, decreased, no wheezes rales or rhonchi CV: S1-S2, regular Abdomen: Soft, nontender, nondistended Extremities: No significant edema Neuro: No focal deficits Psych: Cooperative, normal mood Updated Medication List Medication Instructions Recorded Confirmed Type finasteride 5 mg tablet 5 mg PO DAILY 02/16/24 02/16/24 History tamsulosin 0.4 mg capsule 0.4 mg PO DAILY 02/16/24 02/16/24 History aspirin 81 mg tablet,delayed 81 mg PO QAM 30 days #30 tabs 02/18/24 Rx release atorvastatin 40 mg tablet 40 mg PO QAM 30 days #30 tabs 02/18/24 Rx lisinopril 10 mg tablet 10 mg PO QAM 30 days #30 tabs 02/18/24 Rx metoprolol succinate 50 mg 50 mg PO BID 30 days #60 tabs 02/18/24 Rx tablet,extended release 24 hr nitroglycerin 0.4 mg sublingual 0.4 mg sublingual Q5M PRN chest 02/18/24 Rx tablet pain #10 tabs spironolactone 25 mg tablet 12.5 mg (1/2 x 25 mg) PO DAILY 30 02/18/24 Rx days #15 tabs ticagrelor 90 mg tablet (Brilinta) 90 mg PO BID 30 days #60 tabs 02/18/24 Rx Hospital Stay Data Consultations 02/16/24 09:53 ED Decision to Admit Stat 02/16/24 11:19 Consult Cardiac Rehabilitation Routine 02/16/24 18:23 Consult Turbine Engineer Routine 02/17/24 09:43 Consult Cardiology Routine Procedures Performed Operation Date: 02/16/24 09:45 Actual Procedures p Cineradiography w/Routine Exam - Benny Kaminski MD, PhD s Aspiration/PCI w/DOMI for Stemi - Benny Kaminski MD, PhD Diagnostic Imagining Performed 02/16/24 09:36 CL Cath Imgs for PACS use only Stat Reviewed imaging, laboratory and diagnostic studies. Pertinent findings as below. Echocardiogram shows wall motion abnormality in the LAD distribution and ejection fraction of 40 to 45% I refer you to full report for details Cardiac cath report showed severe LAD stenosis with placement of 3 drug-eluting stents Moderate stenosis of the proximal RCA. I refer you to the full report for details Electrolytes within normal range Creatinine 1.11 Hemoglobin A1c 5.7% Triglycerides 148 Total cholesterol 241 LDL 154 HDL 57 Pending Results Patient Have Any Pending Studies at Discharge: No Discharge Instructions Given to Patient (Per Discharging Provider) ACTIVITY RECOMMENDATIONS: Excess manipulation of the wrist should be avoided for the next 24-48 hours. * No lifting over 2 pounds (approximately a 1/2 gallon of milk) with the utilized arm for 24 hours. * No strenuous activity such as bowling or tennis for 3 days. * Keep the site of the procedure covered with a bandage for 24 hours. *You may shower the day after the procedure. Do not take a tub bath or submerge the puncture site in water for the next 3 days. *Do not operate any motorized equipment for 3 days. SPECIAL CARE INSTRUCTIONS: The site may be slightly bruised and sore following your procedure. Should any of the following occur, contact the Dr. who performed your procedure. 1. Redness/inflammation, swelling, chills, or fever, or colored drainage at procedure site within 3-7 days after your procedure. 2. Coldness, discoloration, ongoing numbness, severe pain, or swelling. Expect mild tingling of hand and tenderness at the puncture site for up to three days. If this persists beyond three days, or other symptoms develop, notify the Dr. who performed your procedure. BLEEDING: If the procedure site on your wrist begins to bleed, do not panic 1. Place 1 or 2 fingers firmly just slightly above the insertion site to stop the bleeding. You may be able to feel your pulse as you hold pressure. 2. Lift your finger after 5 minutes to see if the bleeding has stopped. 3. Once the bleeding has stopped, gently wipe the wrist area clean with a bandage. * If the bleeding from your wrist does not stop after 10 minutes, or if there is a large amount of bleeding or spurting, call 911 (do not drive yourself to the hospital). SKIN IRRITATION: * You may experience some redness and/or swelling in the area where radiation was administered. If any skin irritation occurs, please contact your family physician. FOLLOW UP VISIT: Keep any scheduled doctor appointments. Call 911 and go to the Emergency Room if: * You have tightness or pain in your chest that does not go away with rest or Nitroglycerin * You are very short of breath even with rest Call your doctor if any of the following symptoms or problems start or get worse: * Shortness of breath or difficulty breathing * Wake up at night short of breath * Chest pain * Cough * Swelling of your hands, fee, or legs * More fatigued or tired with your normal activity * Palpitations - sudden fast heart beats WEIGHT * Weigh yourself every morning after using the bathroom. * Use the same scale. * Wear the same amount of clothing. * Write your weight down on your chart. * Call your doctor if you gain more than 2-3 pounds in 1-2 days. MEDICATIONS * Use this discharge instruction sheet for instructions. * Take your medications at the time your doctor ordered. * Do not skip a dose of your medicines. * If you miss a dose of medicine, take as soon as possible, but DO NOT DOUBLE A DOSE. * Read your medicine information when you get home. * Know all of the side effects of your medicine. * Call your doctor's office if you have any side effects. * Be sure all of your doctors know what medicine and herbs you take (including cold, flu, and herbal medicine). * Pain Medicine: If you do not get relief from your pain, please call your doctor for help. Take the following with you to your follow-up doctor appointments: * Weight Chart * Medication List * List of questions Do not drink excessive alcohol, beer or wine. Total Time Total Time Spent Total Time Spent (In Minutes): 40
[2024-02-18 11:47] VITALS: BP 93/70; PULSE 90; RESP 16; TEMP 98.1; O2SAT 95
[2024-02-18 11:56] LABS: Basophils # (auto) 0.06 K/uL (0.00-0.20); Basophils % (auto) 0.4 %; Eosinophils # (auto) 0.12 K/uL (0.00-0.50); Eosinophils % (auto) 0.8 %; Hematocrit (blood only) 45.8 % (42.0-52.0); Hemoglobin 15.9 g/dl (14.0-18.0); Immature Granulocytes # (auto) 0.05 K/uL (0.01-0.20); Immature Granulocytes % (auto) 0.3 %; Lymphocytes # (auto) 2.16 K/uL (1.20-3.40); Lymphocytes % (auto) 15.1 %; Mean Corpuscular Hemoglobin 32.8 pg (25.0-34.0); Mean Corpuscular Hgb Conc 34.7 g/dL (32.0-36.0); Mean Corpuscular Volume 94.4 fL (80.0-100.0); Mean Platelet Volume 9.8 fL (9.4-12.4); Monocytes # (auto) 2.29 K/uL (0.11-0.59); Neutrophils # (auto) 9.67 K/uL (1.40-6.50); Neutrophils % (auto) 67.4 %; Platelet Count 301 K/uL (130-400); RDW Coefficient of Variation 13.7 % (11.5-14.5); RDW Standard Deviation 47.7 fL (36.4-46.3); Red Blood Count 4.85 M/uL (4.70-6.10); White Blood Count 14.35 K/ul (4.8-10.8)
--- NOTE | 2024-02-25 17:45 | Coding Query ---
CONGESTIVE HEART FAILURE To Promote full compliance with coding requirements relating to patient care, physician participation is requested in all cases of cpc coder uncertainty. Please assist us with the following questions. Dr. Deluna, A diagnosis of Congestive Heart Failure is documented in the patient's medical record. 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 SYSTOLIC HEART FAILURE ( x) Acute ( ) Chronic ( ) Acute on Chronic ( ) Rheumatic ( ) Unknown DIASTOLIC HEART FAILURE ( ) Acute ( ) Chronic ( ) Acute on Chronic ( ) Rheumatic ( ) Unknown COMBINED SYSTOLIC AND DIASTOLIC HEART FAILURE ( ) Acute ( ) Chronic ( ) Acute on Chronic ( ) Rheumatic ( ) Unknown Was the CHF Present On Admission? Please check the appropriate box: ( x) Present on Admission ( ) Not Present On Admission ( ) Clinically undetermined ___Unable to determine (Other) ___Ruled out Thank you Zoë VANG
== END 2024-02-18 13:04 | disposition home or self-care (01) | DRG 321 ==
LOC: ED 09:32 → CC 09:45 → 1E 09:52 → SUATTDRO 09:52 → 1E 10:13 → 2E 02-17 15:32